=== PATIENT | male | born 1985 | race Caucasian/White ===

== ENCOUNTER 2019-01-15 13:50 | Emergency (ER) | payer SELFPAY ==
[~2019-01-15] VITALS: Ht 180.3 cm; Wt 72.6 kg
[~2019-01-15 13:50] MED LIST: ACHD5005 PO; AMOX500C2 PO; CLIN300C3 PO; IBP800T PO; NAPR-243 PO; TRM50T PO
[2019-01-15] MEDS ORDERED: NS IV 1000 ML 1,000 ML IV SCH (14:15)
[2019-01-15] MEDS ORDERED: KETOROLAC 30 MG/ML VIAL IVP ONE (14:15)
[2019-01-15 14:32] LABS: BASOPHILS # (AUTO) 0.1 10^3/uL (0.0-0.1); BASOPHILS % (AUTO) 0 % (0-10); EOSINOPHILS # (AUTO) 0.1 10^3/uL (0.0-0.3); EOSINOPHILS % (AUTO) 0 % (0-10); HEMATOCRIT 45 % (40-54); HEMOGLOBIN 15.8 G/DL (13.3-17.7); LYMPHOCYTES # (AUTO) 2.2 X 10^3 (1.0-4.0); LYMPHOCYTES % (AUTO) 13 % (12-44); MEAN CORPUSCULAR HEMOGLOBIN 30 PG (25-34); MEAN CORPUSCULAR HGB CONC 35 G/DL (32-36); MEAN CORPUSCULAR VOLUME 85 FL (80-99); MEAN PLATELET VOLUME 11.7 FL (7.4-10.4); MONOCYTES # (AUTO) 1.6 X 10^3 (0.0-1.0); MONOCYTES % (AUTO) 10 % (0-12); NEUTROPHILS # (AUTO) 12.6 X 10^3 (1.8-7.8); NEUTROPHILS % (AUTO) 76 % (42-75); PLATELET COUNT 258 10^3/uL (130-400); RED CELL DISTRIBUTION WIDTH 12.2 % (10.0-14.5); WHITE BLOOD COUNT 16.5 10^3/uL (4.3-11.0)
--- NOTE | 2019-01-15 14:33 | ED Abdominal Pain ---
General Chief Complaint: Abdominal/GI Problems Stated Complaint: NAUSEA;ABD PAIN;NUMBNESS Nursing Triage Note: PT REPORTS RIGHT SIDED ABD PAIN AND RIGHT SIDED BACK PAIN. PT STATES PAIN IS SHARP AND STABBING. RATES PAIN "15"/10. STATES FEELS LIKE KIDNEY INFECTION. Sepsis Screen: No Definite Risk Source of Information: Patient Exam Limitations: No Limitations History of Present Illness Date Seen by Provider: Jan 15, 2019 Time Seen by Provider: 14:32 Initial Comments To ER with right-sided abdominal pain. This began yesterday initially as a bu rning sensation to the right abdomen. He suspected he might have a bladder infection. Pain resolved last night, recurred this morning. Nausea but no vomiting. No difficulty with urination no fevers or chills. Timing/Duration: 1-2 Days Severity/Quality: Cramping Radiation: RLQ Activities at Onset: None Associated Symptoms: Nausea/Vomiting Allergies and Home Medications Allergies Coded Allergies: cefaclor (Unverified Allergy, Intermediate, HIVES, 01/15/19) Home Medications Clindamycin Hcl 300 Mg Capsule, 1 EACH PO QID FOR INFECTION Prescribed by: JEFF GARVEY on 03/17/13346 Tramadol Hcl 50 Mg Tab, 50 MG PO Q4-6HOURS PRN FOR PAIN Prescribed by: JEFF GARVEY on 03/17/13346 Patient Home Medication List Home Medication List Reviewed: Yes Review of Systems Review of Systems Constitutional: see HPI EENTM: No Symptoms Reported Respiratory: No Symptoms Reported Cardiovascular: No Symptoms Reported Gastrointestinal: See HPI, Abdominal Pain Genitourinary: No Symptoms Reported Musculoskeletal: no symptoms reported Skin: no symptoms reported Psychiatric/Neurological: No Symptoms Reported Endocrine: No Symptoms Reported Hematologic/Lymphatic: No Symptoms Reported Past Negteiv-Iwwfew-Bndmbv Hx Patient Social History Recent Foreign Travel: No Contact w/Someone Who Travel: No Recent Infectious Disease Expo: No Immunizations Up To Date Tetanus Booster (TDap): Less than 5yrs Family Medical History No Pertinent Family Hx Physical Exam Vital Signs Vital Signs - First Documented 01/15/19 13:52 Temp 96.0 Pulse 63 Resp 16 B/P (MAP) 153/100 (117) Pulse Ox 97 Capillary Refill : Less Than 3 Seconds Height/Weight/BMI Height: 5'11.00" Weight: 160lbs. oz. 72.064869tt; BMI Method:Stated General Appearance: WD/WN, no apparent distress HEENT: PERRL/EOMI, normal ENT inspection Respiratory: no respiratory distress, no accessory muscle use Cardiovascular: regular rate, rhythm, no murmur Gastrointestinal: normal bowel sounds, soft, tenderness Extremities: normal range of motion, non-tender Neurologic/Psychiatric: alert, normal mood/affect, oriented x 3 Skin: normal color, warm/dry Progress/Results/Core Measures Results/Orders Lab Results Laboratory Tests Test 01/15/19 14:05 Range/Units White Blood Count 16.5 H 4.3-11.0 10^3/uL Red Blood Count 5.33 4.35-5.85 10^6/uL Hemoglobin 15.8 13.3-17.7 G/DL Hematocrit 45 40-54 % Mean Corpuscular Volume 85 80-99 FL Mean Corpuscular Hemoglobin 30 25-34 PG Mean Corpuscular Hemoglobin Concent 35 32-36 G/DL Red Cell Distribution Width 12.2 10.0-14.5 % Platelet Count 258 130-400 10^3/uL Mean Platelet Volume 11.7 H 7.4-10.4 FL Neutrophils (%) (Auto) 76 H 42-75 % Lymphocytes (%) (Auto) 13 12-44 % Monocytes (%) (Auto) 10 0-12 % Eosinophils (%) (Auto) 0 0-10 % Basophils (%) (Auto) 0 0-10 % Neutrophils # (Auto) 12.6 H 1.8-7.8 X 10^3 Lymphocytes # (Auto) 2.2 1.0-4.0 X 10^3 Monocytes # (Auto) 1.6 H 0.0-1.0 X 10^3 Eosinophils # (Auto) 0.1 0.0-0.3 10^3/uL Basophils # (Auto) 0.1 0.0-0.1 10^3/uL Neutrophils % (Manual) 80 % Lymphocytes % (Manual) 9 % Monocytes % (Manual) 8 % Eosinophils % (Manual) 2 % Basophils % (Manual) 0 % Band Neutrophils 1 % Blood Morphology Comment NORMAL Sodium Level 135 135-145 MMOL/L Potassium Level 3.6 3.6-5.0 MMOL/L Chloride Level 99 98-107 MMOL/L Carbon Dioxide Level 21 21-32 MMOL/L Anion Gap 15 H 5-14 MMOL/L Blood Urea Nitrogen 13 7-18 MG/DL Creatinine 1.26 0.60-1.30 MG/DL Estimat Glomerular Filtration Rate > 60 BUN/Creatinine Ratio 10 Glucose Level 126 H 70-105 MG/DL Calcium Level 10.3 H 8.5-10.1 MG/DL Corrected Calcium 8.5-10.1 MG/DL Total Bilirubin 0.7 0.1-1.0 MG/DL Aspartate Amino Transf (AST/SGOT) 16 5-34 U/L Alanine Aminotransferase (ALT/SGPT) 11 0-55 U/L Alkaline Phosphatase 103 40-136 U/L Total Protein 8.0 6.4-8.2 GM/DL Albumin 5.0 H 3.2-4.5 GM/DL My Orders Orders - HARPAL EUCEDA APRN Cbc With Automated Diff (01/15/19 14:03) Comprehensive Metabolic Panel (01/15/19 14:03) Ua Culture If Indicated (01/15/19 14:03) Ed Iv/Invasive Line Start (01/15/19 14:03) Ketorolac Injection (Toradol Injection) (01/15/19 14:15) Ns Iv 1000 Ml (Sodium Chloride 0.9%) (01/15/19 14:15) Ct Abd/Pelvis Wo(Kidney Stone) (01/15/19 14:03) Manual Differential (01/15/19 14:05) Drug Screen Stat (Urine) (01/15/19 15:05) Medications Given in ED Current Medications Medications Dose Ordered Sig/Juan Route Start Time Stop Time Status Last Admin Dose Admin Ketorolac Tromethamine 30 mg ONCE ONCE IVP 01/15/19 14:15 01/15/19 14:16 DC 01/15/19 14:19 30 MG Vital Signs/I&O 01/15/19 13:52 Temp 96.0 Pulse 63 Resp 16 B/P (MAP) 153/100 (117) Pulse Ox 97 Blood Pressure Mean: 117 Diagnostic Imaging Diagonstic Imaging: CT Comments NAME: BHUMIKA ARMENTA Brandon MED REC#: [id number] PT STATUS: REG ER : 1985 PHYSICIAN: HARPAL EUCEDA APRN ADMIT DATE: 01/15/19/ER Draft Date of Exam:01/15/19 CT ABD/PELVIS WO(KIDNEY STONE) PROCEDURE: CT urinary tract, rule out kidney stone. TECHNIQUE: Multiple contiguous axial images were obtained through the abdomen and pelvis without the use of intravenous contrast. Auto Exposure Controls were utilized during the CT exam to meet ALARA standards for radiation dose reduction. INDICATION: Right-sided back/flank pain, sharp and stabbing. COMPARISON: None. FINDINGS: The lung bases are clear. The heart is normal in size. There is no pericardial effusion. The liver demonstrates no focal lesions. The spleen is normal. The pancreas is unremarkable on this noncontrast exam. The adrenal glands appear normal. There appears to be mild right hydronephrosis and hypodensity in the right kidney relative to the left. The ureter is difficult to follow due to paucity of abdominal fat, however there does appear to be an obstructing calculus in the distal right ureter measuring 4 mm, located a few centimeters from the ureterovesicular junction. The left kidney appears normal. The appendix is normal. There is moderate stool in the descending and sigmoid colon. No significant free fluid or free air is seen. No acute osseous abnormality is seen. IMPRESSION: 1. Obstructing 4 mm calculus in the distal right ureter with mild right hydronephrosis. 2. Moderate stool in the colon, please correlate with any history of constipation. Dictated on workstation # [id number] Dict: 01/15/19 1507 Trans: 01/15/19 1516 [facility] [id number] Interpreted by: SARAH RECIO MD Electronically signed by: Departure Impression Primary Impression: Kidney stone Disposition: 01 HOME, SELF-CARE Condition: Stable Departure-Patient Inst. Decision time for Depature: 15:20 Referrals: [facility] (PCP/Family) Primary Care Physician Patient Instructions: How to Strain Your Urine, Kidney Stones (DC) Add. Discharge Instructions: 1. Follow-up with your regular doctor next week 2. Return to ER for any fevers or other concerns 3. Medication as directed. You can take the hydrocodone for pain and additionally U should add ibuprofen to this for additional pain control. All discharge instructions reviewed with patient and/or family. Voiced understanding. Scripts Hydrocodone/Acetaminophen ([place] 5-325 Tablet) 1 Each Tablet 1 TAB PO Q4-6HR for Pain MDD 10 TABS for 7 Days, #30 TAB Do not fill unless Bactrim is also filled Prov: HARPAL EUCEDA APRN 01/15/19 Sulfamethoxazole/Trimethoprim (Bactrim Ds Tablet) 1 Each Tablet 1 EACH PO BID, #14 TAB Prov: HARPAL EUCEDA APRN 01/15/19 Tamsulosin HCl (Flomax) 0.4 Mg Cap 0.4 MG PO DAILY, #14 CAP Prov: HARPAL EUCEDA APRN 01/15/19 Work/School Note: Work Release Form Date Seen in the Emergency Department: Jan 15, 2019 Return to Work: Jan 17, 2019 HARPAL EUCEDA APRN Jan 15, 2019 14:33
[2019-01-15 14:55] LABS: ALANINE AMINOTRANSFERASE 11 U/L (0-55); ALKALINE PHOSPHATASE 103 U/L (40-136); BILIRUBIN,TOTAL 0.7 MG/DL (0.1-1.0); BUN/CREATININE RATIO 10; CALCIUM 10.3 MG/DL (8.5-10.1); CARBON DIOXIDE 21 MMOL/L (21-32); CHLORIDE 99 MMOL/L (98-107); CREATININE SERUM 1.26 MG/DL (0.60-1.30); GFR ESTIMATED > 60; GLUCOSE 126 MG/DL (70-105); POTASSIUM 3.6 MMOL/L (3.6-5.0); SODIUM 135 MMOL/L (135-145)
[2019-01-15 15:11] LABS: BAND NEUTROPHILS 1 %; BASOPHILS % (MANUAL) 0 %; EOSINOPHILS % (MANUAL) 2 %; LYMPHOCYTES % (MANUAL) 9 %; MONOCYTES % (MANUAL) 8 %; NEUTROPHILS % (MANUAL) 80 %; RBC MORPH NORMAL
--- NOTE | 2019-01-15 15:16 | Diagnostic Imaging Report ---
PROCEDURE: CT urinary tract, rule out kidney stone. TECHNIQUE: Multiple contiguous axial images were obtained through the abdomen and pelvis without the use of intravenous contrast. Auto Exposure Controls were utilized during the CT exam to meet ALARA standards for radiation dose reduction. INDICATION: Right-sided back/flank pain, sharp and stabbing. COMPARISON: None. FINDINGS: The lung bases are clear. The heart is normal in size. There is no pericardial effusion. The liver demonstrates no focal lesions. The spleen is normal. The pancreas is unremarkable on this noncontrast exam. The adrenal glands appear normal. There appears to be mild right hydronephrosis and hypodensity in the right kidney relative to the left. The ureter is difficult to follow due to paucity of abdominal fat, however there does appear to be an obstructing calculus in the distal right ureter measuring 4 mm, located a few centimeters from the ureterovesicular junction. The left kidney appears normal. The appendix is normal. There is moderate stool in the descending and sigmoid colon. No significant free fluid or free air is seen. No acute osseous abnormality is seen. IMPRESSION: 1. Obstructing 4 mm calculus in the distal right ureter with mild right hydronephrosis. 2. Moderate stool in the colon, please correlate with any history of constipation. Dictated by: Dictated on workstation # [id number]
[2019-01-15] MEDS ORDERED: HYDR-4226 PO (15:23)
[2019-01-15] MEDS ORDERED: SULF1TAB35 PO (15:23)
[2019-01-15] MEDS ORDERED: TAMS0.4C98 PO (15:23)
[2019-01-15 15:51] LABS: BILIRUBIN,URINE NEGATIVE (NEGATIVE); CLARITY,URINE SLIGHTLY CLOUDY; COLOR,URINE YELLOW; GLUCOSE, URINE (UA) NEGATIVE (NEGATIVE); KETONES,URINE 1+ (NEGATIVE); LEUKOCYTE ESTERASE ,URINE 1+ (NEGATIVE); NITRITE,URINE NEGATIVE (NEGATIVE); PH,URINE 8 (5-9); PROTEIN,URINE NEGATIVE (NEGATIVE); UROBILINOGEN,URINE NORMAL (NORMAL)
[2019-01-15 16:04] LABS: AMORPHOUS SEDIMENT,UR LARGE AMOR PHOSPHATE /LPF; BACTERIA,URINE TRACE /HPF; SQUAMOUS EPITHELIAL CELL,UR RARE /HPF; WBC,URINE 0-2 /HPF
[2019-01-15 16:06] VITALS: BP 132/90
[2019-01-15 16:09] LABS: AMPHETAMINE SCREEN, URINE POSITIVE (NEGATIVE); BARBITURATE SCREEN URINE NEGATIVE (NEGATIVE); BENZODIAZEPINES SCREEN URINE NEGATIVE (NEGATIVE); CANNABINOID SCREEN, URINE NEGATIVE (NEGATIVE); COCAINE SCREEN URINE NEGATIVE (NEGATIVE); METHADONE STAT NEGATIVE (NEGATIVE); METHAMPHETAMINE SCREEN URINE S POSITIVE (NEGATIVE); OPIATE SCREEN URINE NEGATIVE (NEGATIVE); OXYCODONE STAT NEGATIVE (NEGATIVE); PROPOXYPHENE STAT NEGATIVE (NEGATIVE); TRICYCLIC ANTIDEPRESSANTS SCRE NEGATIVE (NEGATIVE)
--- OUTSIDE RECORDS SUMMARY | 2019-01-15 22:05 | XMS REPORT | Continuity of Care Document ---
Demographics Preferred Language Unknown Marital Status Unknown Worship Affiliation Unknown Race Unknown Ethnic Group Unknown Author Organization Unknown Address Unknown Allergies Active Description Code Type Severity Reaction Onset Reported/Identified Relationship to Patient Clinical Status Yes ceclor Drug Allergy 08/20/2012 Medications There is no data. Problems Date Dx Coded Attending Type Code Diagnosis Diagnosed By 08/20/2012 784.0 HEADACHE 08/20/2012 784.0 HEADACHE 08/20/2012 784.0 HEADACHE 08/20/2012 784.0 HEADACHE 12/09/2012 599.70 HEMATURIA UNSPECIFIED Procedures Code [place] [address] ROUTINE VENIPUNCTURE 08/20/2012 23614 CMP 08/20/2012 16460 TSH 08/20/2012 33839 CBC 08/20/2012 60741 UA W/ CULTURE IF INDICATED 12/09/2012 Results Test Result Range Complete blood count (CBC) with automated white blood cell (WBC) differential - 01/15/19 14:05 Blood leukocytes automated count (number/volume) 16.5 10*3/uL 4.3-11.0 Blood erythrocytes automated count (number/volume) 5.33 10*6/uL 4.35-5.85 Venous blood hemoglobin measurement (mass/volume) 15.8 g/dL 13.3-17.7 Blood hematocrit (volume fraction) 45 % 40-54 Automated erythrocyte mean corpuscular volume 85 [foz_us] 80-99 Automated erythrocyte mean corpuscular hemoglobin (mass per erythrocyte) 30 pg 25-34 Automated erythrocyte mean corpuscular hemoglobin concentration measurement (mass/volume) 35 g/dL 32-36 Automated erythrocyte distribution width ratio 12.2 % 10.0- 14.5 Automated blood platelet count (count/volume) 258 10*3/uL 130-400 Automated blood platelet mean volume measurement 11.7 [foz_us] 7.4-10.4 Automated blood neutrophils/100 leukocytes 76 % 42-75 Automated blood lymphocytes/100 leukocytes 13 % 12-44 Blood monocytes/100 leukocytes 10 % 0-12 Automated blood eosinophils/100 leukocytes 0 % 0-10 Automated blood basophils/100 leukocytes 0 % 0-10 Blood neutrophils automated count (number/volume) 12.6 10*3 1.8-7.8 Blood lymphocytes automated count (number/volume) 2.2 10*3 1.0-4.0 Blood monocytes automated count (number/volume) 1.6 10*3 0.0- 1.0 Automated eosinophil count 0.1 10*3/uL 0.0-0.3 Automated blood basophil count (count/volume) 0.1 10*3/uL 0.0-0.1 Comprehensive metabolic panel - 01/15/19 14:05 Serum or plasma sodium measurement (moles/volume) 135 mmol/L 135-145 Serum or plasma potassium measurement (moles/volume) 3.6 mmol/L 3.6-5.0 Serum or plasma chloride measurement (moles/volume) 99 mmol/L 98-107 Carbon dioxide 21 mmol/L 21-32 Serum or plasma anion gap determination (moles/volume) 15 mmol/L 5-14 Serum or plasma urea nitrogen measurement (mass/volume) 13 mg/dL 7-18 Serum or plasma creatinine measurement (mass/volume) 1.26 mg/dL 0.60-1.30 Serum or plasma urea nitrogen/creatinine mass ratio 10 NRG Serum or plasma creatinine measurement with calculation of estimated glomerular filtration rate > NRG Serum or plasma glucose measurement (mass/volume) 126 mg/dL 70-105 Serum or plasma calcium measurement (mass/volume) 10.3 mg/dL 8.5-10.1 Serum or plasma total bilirubin measurement (mass/volume) 0.7 mg/dL 0.1-1.0 Serum or plasma alkaline phosphatase measurement (enzymatic activity/volume) 103 U/L 40-136 Serum or plasma aspartate aminotransferase measurement (enzymatic activity/volume) 16 U/L 5-34 Serum or plasma alanine aminotransferase measurement (enzymatic activity/volume) 11 U/L 0-55 Serum or plasma protein measurement (mass/volume) 8.0 g/dL 6.4-8.2 Serum or plasma albumin measurement (mass/volume) 5.0 g/dL 3.2-4.5 Manual absolute plasma cell count - 01/15/19 14:05 Blood monocytes/100 leukocytes 8 % NRG Manual blood segmented neutrophils/100 leukocytes 80 % NRG Blood band neutrophils/100 leukocytes 1 % NRG Manual blood lymphocytes/100 leukocytes 9 % NRG Manual eosinophils/100 leukocytes in nose 2 % NRG Manual blood basophils/100 leukocytes 0 % NRG Blood erythrocyte morphology finding identification NORMAL NRG Encounters ACCT No. Visit Date/Time Discharge Status Pt. Type Provider Facility Loc./Unit Complaint [id number] 08/23/2012 14:02:00 08/23/2012 23:59:59 [facility] Outpatient [id number] 08/20/2012 17:13:00 08/20/2012 23:59:59 [facility] Outpatient [id number] 12/09/2012 18:27:00 Document Registration [id number] 09/24/2012 16:05:00 Document Registration [id number] 03/17/2013 03:17:00 03/17/2013 03:55:00 [facility] Emergency [id number] 01/15/2019 14:34:00 Document Registration
--- OUTSIDE RECORDS SUMMARY | 2019-01-15 22:05 | XMS REPORT ---
Author Author Migration, Doctor Organization [facility] Address Unknown Phone Unavailable Care Team Providers Care Music Teacher Name Role Phone Migration, Doctor Unavailable Unavailable PROBLEMS Type Condition ICD9-CM Code [id number] Code Onset Dates Condition Status SNOMED Code Problem Headache 784.0 Active 03928494 Problem Hematuria, unspecified 599.70 Active 84452859 ALLERGIES No Information ENCOUNTERS Encounter Location Date Diagnosis [facility] [id number] [place] [id number] Oct, [facility] [address], [place] [address] Oct, [facility] [id number] [place] [phone] November, [facility] [id number], [place] [address] Oct, [facility] [id number] [address] Aug, [facility] [id number] [place] [address] Jul, [facility] [id number], [place] [address] Jul, IMMUNIZATIONS No Known Immunizations SOCIAL HISTORY Never Assessed REASON FOR VISIT EMR-[facility] [place] [facility] PLAN OF CARE VITAL SIGNS MEDICATIONS Unknown Medications RESULTS No Results PROCEDURES No Known procedures INSTRUCTIONS MEDICATIONS ADMINISTERED No Known Medications
--- OUTSIDE RECORDS SUMMARY | 2019-01-15 22:05 | XMS REPORT | Continuity of Care Document ---
Author Author [facility] Organization [facility] Address Unknown Phone Unavailable Care Team Providers Care Rail Operator Name Role Phone [facility] Insurance Providers Payer Name Policy Number Subscriber Name Relationship Self Pay Bhumika Pagan 01 Self / Same As Patient Advance Directives Directive Response Recorded Date Advance Directives N 03/17/13 3:20am Organ Donor Y 03/17/13 3:20am Problems No Known Problems or Medical conditions. Social History History Response Recorded Date/Time Alcohol Use Denies Use 03/17/13 3:20am Recreational Drug Use N 03/17/13 3:20am Hospitalization with Isolation Unknown 08/26/12 10:48am Sexually Transmitted Disease N 03/17/13 3:20am HIV/AIDS N 03/17/13 3:20am Allergies, Adverse Reactions, Alerts Allergen Type Severity Reaction Last Updated Cefaclor Allergy Intermediate HIVES 12/22/09 Medications Medication Dose Units Route Sig Qty Days Tramadol HCl (Ultram) 50 Mg PO Q4-6HOURS PRN 20 Clindamycin HCl (Cleocin Hcl) 1 Each PO QID 40 Tramadol HCl (Ultram) 50 Mg PO Q4H 10 Ibuprofen (Motrin) 800 Mg PO Q8HR PRN 30 Hydrocodone Bit/Acetaminophen (Hydrocodon-Acetaminophen 5-325) 1 - 2 Each PO Q6H PRN 14 Amoxicillin 1 Each PO TID Hydrocodone Bit/Acetaminophen (Hydrocodon-Acetaminophen 5-325) 1 - 2 Each PO Q6H PRN 14 Response Recorded Date/Time Status not known Unknown Results No Known Relevant Diagnostic Tests, Laboratory Data and/or Discharge Summary. Encounters Encounter Location Date/Time Registered Emergency Room [facility] 03/17/13 3:17am Departed Emergency Room [facility] 11/10/12 5:17am
== END 2019-01-15 16:06 | disposition home or self-care (01) ==
LOC: EDUNIT# 13:50 → ER 13:51
DX: N13.2 Hydronephrosis with renal and ureteral calculous obstruction (principal); Z88.1 Allergy status to other antibiotic agents
CPT/HCPCS: 36415; 74176; 80053; 80306; 81000; 85007; 85027; 87088; 96374

== ENCOUNTER 2023-01-14 18:40 | Emergency (ER) | payer SELFPAY ==
[~2023-01-14] VITALS: Ht 182.9 cm; Wt 70.3 kg
[~2023-01-14 18:40] MED LIST changes: +HYDR-4226 PO; +SULF1TAB38 PO; +TMSL.4C PO
[2023-01-14 18:50] VITALS: BP 188/130
--- NOTE | 2023-01-14 19:23 | ED General ---
General Chief Complaint: General Problems/Pain Stated Complaint: SOA Nursing Triage Note: PT AMB TO ED BY POV WITH C/O DIZZINESS/LIGHT HEADEDNESS BEGINNING YESTERDAY. PT REPORTS HE "JUST DON'T FEEL GOOD." PT DENIES C/P, SOB, FEVER, N/V/D, URINARY SX, COUGH, OR ANY OTHER SX AT THIS TIME. PT REPORTS HE HAS PULLED SEVERAL TICKS OFF HIMSELF THIS YEAR AND WONDERS IF THIS MAY BE CONTRIBUTING TO HIM NOT FEELING WELL. Source of Information: Patient Exam Limitations: No Limitations History of Present Illness Date Seen by Provider: Jan 14, 2023 Time Seen by Provider: 19:15 Initial Comments 37-year-old male presents to the ER with complaints of feeling lightheaded, numb all over, and generally not feeling well. He denies headache, chest pain, shortness of air, abdominal pain, nausea, vomiting, diarrhea. Blood pressure is found to be significantly elevated. He denies history of diagnosis of hypertension. He has never been prescribed occasions for blood pressure. Patient endorses meth use. Allergies and Home Medications Allergies Coded Allergies: cefaclor (Unverified Allergy, Intermediate, HIVES, 01/15/19) Patient Home Medication List Home Medication List Reviewed: Yes Clindamycin Hcl (Cleocin Hcl) 300 Mg Capsule, 1 EACH PO QID Prescribed by: JEFF GARVEY on 03/17/13346 Hydrocodone/Acetaminophen (Hydrocodone/Acetaminophen 5 MG/325 MG TAB) 1 Each Tablet, 1 TAB PO Q4-6HR Prescribed by: HARPAL EUCEDA on 01/15/19 152 Metoprolol Succinate (Metoprolol Succinate) 50 Mg Tab.er.24h, 50 MG PO DAILY Prescribed by: Cinthya Pabon on 01/14/232150 Sulfamethoxazole/Trimethoprim (Bactrim Ds Tablet) 1 Each Tablet, 1 EACH PO BID Prescribed by: HARPAL EUCEDA on 01/15/19 152 Tamsulosin HCl (Flomax) 0.4 Mg Cap, 0.4 MG PO DAILY Prescribed by: HARPAL EUCEDA on 01/15/19 152 Tramadol Hcl (Ultram) 50 Mg Tab, 50 MG PO Q4-6HOURS PRN Prescribed by: JEFF GARVEY on 03/17/13346 Review of Systems Review of Systems Constitutional: see HPI Past Qauiigc-Ngtuws-Mtfvcq Hx Immunizations Up To Date Tetanus Booster (TDap): Less than 5yrs Past Medical History Surgeries: Yes (GROIN LYMPH NODE REMOVED AGE 15, TOP TEETH REMOVED) Respiratory: No Cardiac: No Neurological: No Sexually Transmitted Disease: No HIV/AIDS: No Gastrointestinal: No Musculoskeletal: No Endocrine: No Cancer: No Psychosocial: No Integumentary: No Blood Disorders: No Family Medical History No Pertinent Family Hx Physical Exam Vital Signs Vital Signs - First Documented 01/14/23 18:50 Temp 36.0 Pulse 89 Resp 16 B/P (MAP) 188/130 (149) Pulse Ox 96 O2 Delivery Room Air Capillary Refill : Less Than 3 Seconds Height, Weight, BMI Height: 5'11.00" Weight: 160lbs. oz. 72.975427ms; 21.00 BMI Method:Stated General Appearance: No Apparent Distress, WD/WN Neck: Normal Inspection, Supple Respiratory: Lungs Clear, Normal Breath Sounds, No Accessory Muscle Use, No Respiratory Distress Cardiovascular: Regular Rate, Rhythm, Systolic Murmur Extremity: Normal Inspection, Normal Range of Motion Neurologic/Psychiatric: Alert, Normal Mood/Affect Skin: Normal Color, Warm/Dry Progress/Results/Core Measures Suspected Sepsis SIRS Temperature: Pulse: 89 Respiratory Rate: 16 Laboratory Tests 01/14/23 20:10: White Blood Count 9.9 Blood Pressure 188 /130 Mean: 149 Laboratory Tests 01/14/23 20:10: Creatinine 1.15, Platelet Count 262, Total Bilirubin 0.4 Results/Orders Lab Results Laboratory Tests Test 01/14/23 20:10 Range/Units White Blood Count 9.9 4.3-11.0 10^3/uL Red Blood Count 4.71 4.30-5.52 10^6/uL Hemoglobin 13.8 13.3-17.7 g/dL Hematocrit 40 40-54 % Mean Corpuscular Volume 85 80-99 fL Mean Corpuscular Hemoglobin 29 25-34 pg Mean Corpuscular Hemoglobin Concent 35 32-36 g/dL Red Cell Distribution Width 12.6 10.0-14.5 % Platelet Count 262 130-400 10^3/uL Mean Platelet Volume 11.1 9.0-12.2 fL Immature Granulocyte % (Auto) 0 % Neutrophils (%) (Auto) 61 42-75 % Lymphocytes (%) (Auto) 23 12-44 % Monocytes (%) (Auto) 13 H 0-12 % Eosinophils (%) (Auto) 3 0-10 % Basophils (%) (Auto) 1 0-10 % Neutrophils # (Auto) 6.0 1.8-7.8 10^3/uL Lymphocytes # (Auto) 2.2 1.0-4.0 10^3/uL Monocytes # (Auto) 1.3 H 0.0-1.0 10^3/uL Eosinophils # (Auto) 0.3 0.0-0.3 10^3/uL Basophils # (Auto) 0.1 0.0-0.1 10^3/uL Immature Granulocyte # (Auto) 0.0 0.0-0.1 10^3/uL Sodium Level 140 135-145 MMOL/L Potassium Level 3.3 L 3.6-5.0 MMOL/L Chloride Level 100 98-107 MMOL/L Carbon Dioxide Level 29 21-32 MMOL/L Anion Gap 11 5-14 MMOL/L Blood Urea Nitrogen 12 7-18 MG/DL Creatinine 1.15 0.60-1.30 MG/DL Estimat Glomerular Filtration Rate 85 BUN/Creatinine Ratio 10 Glucose Level 103 70-105 MG/DL Calcium Level 9.3 8.5-10.1 MG/DL Corrected Calcium 9.3 8.5-10.1 MG/DL Magnesium Level 2.2 1.6-2.4 MG/DL Total Bilirubin 0.4 0.1-1.0 MG/DL Aspartate Amino Transf (AST/SGOT) 29 5-34 U/L Alanine Aminotransferase (ALT/SGPT) 12 0-55 U/L Alkaline Phosphatase 105 40-136 U/L Troponin I < 0.028 <0.028 NG/ML Total Protein 6.8 6.4-8.2 GM/DL Albumin 4.0 3.2-4.5 GM/DL My Orders Orders - CINTHYA PABON APRN Cbc With Automated Diff (01/14/23 19:19) Magnesium (01/14/23 19:19) Ekg Tracing (01/14/23 19:19) Comprehensive Metabolic Panel (01/14/23 19:19) Monitor-Rhythm Ecg Trace Only (01/14/23 19:19) Ed Iv/Invasive Line Start (01/14/23 19:19) Labetalol Injection (Normodyne Injection (01/14/23 19:30) Troponin I Jomar (01/14/23 19:43) Metoprolol Succinate (Xl) Tab (Toprol Xl (01/14/23 20:00) Potassium Chloride (Tablet) (K Dur Table (01/14/23 21:00) Labetalol Injection (Normodyne Injection (01/14/23 21:15) Medications Given in ED Vital Signs/I&O 01/14/23 18:50 Temp 36.0 Pulse 89 Resp 16 B/P (MAP) 188/130 (149) Pulse Ox 96 O2 Delivery Room Air Capillary Refill : Less Than 3 Seconds Blood Pressure Mean: 149 Progress Note : Progress Note Patient seen and evaluated, resting comfortably in bed, no acute distress. On exam and symptoms, work-up initiated including CBC, CMP, magnesium, EKG. Labetalol ordered. Metoprolol XL also ordered. Labs reviewed. CBC grossly normal. CMP shows slightly decreased potassium 3.3. Troponin negative. Magnesium normal. Oral potassium ordered. Second dose of labetalol ordered. EKG shows left ventricular hypertrophy likely related to prolonged, untreated hypertension. Patient's blood pressure improved to 159/120 down from 188 systolic on arrival. Patient reports he is feeling better. Will discharge with prescription for metoprolol. Patient does not have a primary care provider, will give him contact information for cardiology for follow-up. ECG Initial ECG Impression Date: Jan 14, 2023 Initial ECG Impression Time: 19:28 Initial ECG Rate: 83 Initial ECG Rhythm: Normal Sinus Initial ECG Intervals: Normal Initial ECG Impression: Nonspecific Changes Initial ECG Comparisson: No Previous ECG Available Comment Left ventricular hypertrophy. ST elevation in V1 and V2, no Q waves or T wave inversion. Departure Impression Primary Impression: Hypertension Qualified Codes: I10 - Essential (primary) hypertension Disposition: 01 HOME, SELF-CARE Condition: Stable Departure-Patient Inst. Decision time for Depature: 21:48 Referrals: [facility] [place] (PCP/Family) Primary Care Physician SUZE SANDOVAL MD Patient Instructions: High Blood Pressure (DC) Add. Discharge Instructions: Take metoprolol 1 tablet daily. Call cardiology tomorrow to schedule a follow-up appointment this week or next week. You need to establish a primary care provider as well. Stop using meth. Return for severe headache, severe dizziness, blurred vision, chest pain, shortness of air, weakness on one side of your body, or any other new, concer rosita, or worsening symptoms. All discharge instructions reviewed with patient and/or family. Voiced understanding. Scripts Metoprolol Succinate (Metoprolol Succinate) 50 Mg Tab.er.24h 50 MG PO DAILY for 30 Days, #30 TAB 0 Refills Prov: CINTHYA PABON APRN 01/14/23 CINTHYA PABON APRN Jan 14, 2023 19:23
[2023-01-14] MEDS ORDERED: LABETALOL HCL 20 MG/4 ML VIAL IV ONE ×2 (19:30→21:15)
[2023-01-14] MEDS ORDERED: meTOproloL SUCCINATE 50 MG (TOPROL XL) TAB PO SCH (20:00)
[2023-01-14 20:37] LABS: BASOPHILS # (AUTO) 0.1 10^3/uL (0.0-0.1); BASOPHILS % (AUTO) 1 % (0-10); EOSINOPHILS # (AUTO) 0.3 10^3/uL (0.0-0.3); EOSINOPHILS % (AUTO) 3 % (0-10); HEMATOCRIT 40 % (40-54); HEMOGLOBIN 13.8 g/dL (13.3-17.7); LYMPHOCYTES # (AUTO) 2.2 10^3/uL (1.0-4.0); LYMPHOCYTES % (AUTO) 23 % (12-44); MEAN CORPUSCULAR HEMOGLOBIN 29 pg (25-34); MEAN CORPUSCULAR HGB CONC 35 g/dL (32-36); MEAN CORPUSCULAR VOLUME 85 fL (80-99); MEAN PLATELET VOLUME 11.1 fL (9.0-12.2); MONOCYTES # (AUTO) 1.3 10^3/uL (0.0-1.0); MONOCYTES % (AUTO) 13 % (0-12); NEUTROPHILS % (AUTO) 61 % (42-75); PLATELET COUNT 262 10^3/uL (130-400); WHITE BLOOD COUNT 9.9 10^3/uL (4.3-11.0)
[2023-01-14 20:46] LABS: ALKALINE PHOSPHATASE 105 U/L (40-136); BILIRUBIN,TOTAL 0.4 MG/DL (0.1-1.0); BUN/CREATININE RATIO 10; CALCIUM 9.3 MG/DL (8.5-10.1); CARBON DIOXIDE 29 MMOL/L (21-32); CHLORIDE 100 MMOL/L (98-107); CREATININE SERUM 1.15 MG/DL (0.60-1.30); GFR ESTIMATED 85; GLUCOSE 103 MG/DL (70-105); MAGNESIUM 2.2 MG/DL (1.6-2.4); POTASSIUM 3.3 MMOL/L (3.6-5.0); SODIUM 140 MMOL/L (135-145); TOTAL PROTEIN 6.8 GM/DL (6.4-8.2)
[2023-01-14] MEDS ORDERED: KCL 20 MEQ TAB (K-DUR) PO ONE (21:00)
[2023-01-14 21:13] LABS: ALANINE AMINOTRANSFERASE 12 U/L (0-55)
[2023-01-14] MEDS ORDERED: METO50TA7 PO (21:51)
== END 2023-01-14 22:04 | disposition home or self-care (01) ==
LOC: EDUNIT# 18:40 → ER 18:42
DX: I10 Essential (primary) hypertension (principal)
CPT/HCPCS: 36415; 80053; 83735; 84484; 85025; 93005; 93041

== ENCOUNTER 2023-06-01 17:13 | Inpatient (IN) | payer SELFPAY ==
[~2023-06-01] VITALS: Ht 182 cm; Wt 72.8 kg
[~2023-06-01 17:13] MED LIST changes: +METO50TA7 PO
[2023-06-01] MEDS ORDERED: ACETAMINOPHEN 500 MG TABLET PO STA (17:38)
[2023-06-01 17:43] LABS: BASOPHILS # (AUTO) 0.1 10^3/uL (0.0-0.1); BASOPHILS % (AUTO) 1 % (0-10); EOSINOPHILS # (AUTO) 0.1 10^3/uL (0.0-0.3); EOSINOPHILS % (AUTO) 1 % (0-10); HEMATOCRIT 43 % (40-54); HEMOGLOBIN 14.8 g/dL (13.3-17.7); LYMPHOCYTES # (AUTO) 2.1 10^3/uL (1.0-4.0); LYMPHOCYTES % (AUTO) 19 % (12-44); MEAN CORPUSCULAR HEMOGLOBIN 29 pg (25-34); MEAN CORPUSCULAR HGB CONC 34 g/dL (32-36); MEAN CORPUSCULAR VOLUME 84 fL (80-99); MEAN PLATELET VOLUME 10.8 fL (9.0-12.2); MONOCYTES # (AUTO) 0.9 10^3/uL (0.0-1.0); MONOCYTES % (AUTO) 8 % (0-12); NEUTROPHILS # (AUTO) 7.8 10^3/uL (1.8-7.8); NEUTROPHILS % (AUTO) 71 % (42-75); PLATELET COUNT 249 10^3/uL (130-400)
[2023-06-01] MEDS ORDERED: meTOprolol TARTRATE (IR) 50 MG TABLET PO ONE (17:45)
[2023-06-01] MEDS ORDERED: meTOprolol INJECTION 5 MG/5 ML VIAL IV ONE (17:45)
[2023-06-01 17:53] LABS: ALBUMIN 4.5 GM/DL (3.2-4.5); CHLORIDE 97 MMOL/L (98-107); POTASSIUM 3.4 MMOL/L (3.6-5.0); SODIUM 136 MMOL/L (135-145)
[2023-06-01 17:54] LABS: CALCIUM 9.9 MG/DL (8.5-10.1)
[2023-06-01 17:56] LABS: GLUCOSE 154 MG/DL (70-105); TOTAL PROTEIN 7.5 GM/DL (6.4-8.2)
--- NOTE | 2023-06-01 17:56 | ED Headache ---
General Chief Complaint: Head/Cervical Problems Stated Complaint: HEADACHE Nursing Triage Note: PT PRESENTS TO ED WITH COMPLAINTS OF GREGORIO X 3 DAYS WITH ONE EPISODE OF VOMITING AFTER GREGORIO INTENSIFIED TODAY. PT REPORTS HE TOOK 2 "HITS" OFF A [employer]AB [employer] AND FEELS LIKE IT MIGHT HAVE HELPED HIS S/S. Source: patient Exam Limitations: no limitations (DEEPAK MOCK MD) History of Present Illness Date Seen by Provider: Jun 01, 2023 Time Seen by Provider: 17:27 Initial Comments Here with report of headache over the last 3 to 4 days. Not better despite Tylenol or ibuprofen. He did try 2 hits off a dab pen today and that did not really help. States the headache got worse but now is a little better. No history of hypertension but arrives quite hypertensive. States he follows with [facility] if needed. Does note some nausea with this. Initially reported 10 out of 10 pain but now says it is 5 out of 10 and global. Denies chest pain, breathing problems, diarrhea or dysuria. Denies leg pain or swelling. He is not currently on any medicines. Timing/Duration: waxing and waning, other (3 to 4 days) Severity/Quality: moderate, severe Location: global Prior Headaches/Recent Trauma: no recent headache/trauma Modifying Factors: improves with rest Associated Symptoms: No confusion, No fatigue, No fever/chills, No loss of consciousness, No nasal congestion, No sinus infection, No stiff neck (DEEPAK MOCK MD) Allergies and Home Medications Allergies Coded Allergies: cefaclor (Unverified Allergy, Intermediate, HIVES, 01/15/19) Patient Home Medication List Home Medication List Reviewed: Yes (DEEPAK MOCK MD) Discontinued Medications Clindamycin Hcl (Cleocin Hcl) 300 Mg Capsule, 1 EACH PO QID Prescribed by: JEFF JACINTO on 03/17/13 0347 Last Action: Discontinued Hydrocodone/Acetaminophen (Hydrocodone/Acetaminophen 5 MG/325 MG TAB) 1 Each Tablet, 1 TAB PO Q4-6HR Prescribed by: HARPAL EUCEDA on 01/15/19 1523 Last Action: Discontinued Metoprolol Succinate (Metoprolol Succinate) 50 Mg Tab.er.24h, 50 MG PO DAILY Prescribed by: Cinthya Neal on 01/14/23 215 Last Action: Discontinued Sulfamethoxazole/Trimethoprim (Bactrim Ds Tablet) 1 Each Tablet, 1 EACH PO BID Prescribed by: HARPAL EUCEDA on 01/15/191522 Last Action: Discontinued Tamsulosin HCl (Flomax) 0.4 Mg Cap, 0.4 MG PO DAILY Prescribed by: HARPAL EUCEDA on 01/15/191522 Last Action: Discontinued Tramadol Hcl (Ultram) 50 Mg Tab, 50 MG PO Q4-6HOURS PRN Prescribed by: JEFF JACINTO on 03/17/13 034 Last Action: Discontinued Review of Systems Review of Systems Constitutional: see HPI; No chills, No fever Eyes: No Symptoms Reported Ears, Nose, Mouth, Throat: no symptoms reported Respiratory: No cough, No short of breath Cardiovascular: No chest pain, No edema, No palpitations Gastrointestinal: No nausea, No vomiting Genitourinary: no symptoms reported Musculoskeletal: no symptoms reported Skin: no symptoms reported Psychiatric/Neurological: Headache; Denies Weakness (DEEPAK MOCK MD) Past Hvgztya-Jgbwoy-Uqlggu Hx Patient Social History Tobacco Use?: Yes Smoking Status: Current Everyday Smoker Substance use?: Yes Substance type: Marijuana Alcohol Use?: No Pt feels they are or have been: No (DEEPAK MOCK MD) Tobacco Use?: Yes Tobacco type used: Cigarettes Substance use?: Yes Substance type: Methamphetamine Substance frequency: Daily Alcohol Use?: Yes Alcohol Frequency: Once in a while (JEFF JACINTO DO) Immunizations Up To Date Tetanus Booster (TDap): Less than 5yrs First/Initial COVID19 Vaccinat: N/A Second COVID19 Vaccination Catrachito: N/A Third COVID19 Vaccination Date: N/A (DEEPAK MOCK MD) Past Medical History Surgery/Hospitalization HX: DENIES Surgeries: Yes (GROIN LYMPH NODE REMOVED AGE 15, TOP TEETH REMOVED) Respiratory: No Cardiac: Yes Hypertension Neurological: No Sexually Transmitted Disease: No HIV/AIDS: No Gastrointestinal: No Musculoskeletal: No Endocrine: No Cancer: No Psychosocial: No Integumentary: No Blood Disorders: No (DEEPAK MOCK MD) Genitourinary: Yes Kidney Stones HEENT: Yes (POOR DENTITION) (JEFF JACINTO DO) Family Medical History Reviewed Nursing Family Hx (DEEPAK MOCK MD) No Pertinent Family Hx (DEEPAK MOCK MD) Physical Exam Vital Signs Vital Signs - First Documented 06/01/23 17:20 Temp 36.5 Pulse 54 Resp 16 B/P (MAP) 206/142 (163) Pulse Ox 93 (JEFF JACINTO DO) Vital Signs Capillary Refill : Less Than 3 Seconds (DEEPAK MOCK MD) Height, Weight, BMI Height: 5'11.00" Weight: 160lbs. oz. 72.740495pw; 21.00 BMI Method:Stated General Appearance: WD/WN, no apparent distress HEENT: PERRL/EOMI, pharynx normal Neck: full range of motion, supple Cardiovascular: regular rate, rhythm, no murmur Respiratory: lungs clear, normal breath sounds Gastrointestinal: non tender, soft Back: normal inspection, no CVA tenderness, no vertebral tenderness Extremities: non-tender, normal inspection Psychiatric: alert, oriented x 3 Crainal Nerves: normal hearing, normal speech Coordination/Gait: normal gait Motor/Sensory: no motor deficit, no sensory deficit Skin: normal color, warm/dry (DEEPAK MOCK MD) General Appearance: thin, other (DIRTY, MALODOROUS) HEENT: other (POOR DENTITION) (JEFF JACINTO DO) Progress/Results/Core Measures Results/Orders Lab Results Laboratory Tests Test 06/01/23 17:36 06/01/23 18:49 Range/Units White Blood Count 11.0 4.3-11.0 10^3/uL Red Blood Count 5.15 4.30-5.52 10^6/uL Hemoglobin 14.8 13.3-17.7 g/dL Hematocrit 43 40-54 % Mean Corpuscular Volume 84 80-99 fL Mean Corpuscular Hemoglobin 29 25-34 pg Mean Corpuscular Hemoglobin Concent 34 32-36 g/dL Red Cell Distribution Width 12.2 10.0-14.5 % Platelet Count 249 130-400 10^3/uL Mean Platelet Volume 10.8 9.0-12.2 fL Immature Granulocyte % (Auto) 0 % Neutrophils (%) (Auto) 71 42-75 % Lymphocytes (%) (Auto) 19 12-44 % Monocytes (%) (Auto) 8 0-12 % Eosinophils (%) (Auto) 1 0-10 % Basophils (%) (Auto) 1 0-10 % Neutrophils # (Auto) 7.8 1.8-7.8 10^3/uL Lymphocytes # (Auto) 2.1 1.0-4.0 10^3/uL Monocytes # (Auto) 0.9 0.0-1.0 10^3/uL Eosinophils # (Auto) 0.1 0.0-0.3 10^3/uL Basophils # (Auto) 0.1 0.0-0.1 10^3/uL Immature Granulocyte # (Auto) 0.0 0.0-0.1 10^3/uL Sodium Level 136 135-145 MMOL/L Potassium Level 3.4 L 3.6-5.0 MMOL/L Chloride Level 97 L 98-107 MMOL/L Carbon Dioxide Level 29 21-32 MMOL/L Anion Gap 10 5-14 MMOL/L Blood Urea Nitrogen 18 7-18 MG/DL Creatinine 1.51 H 0.60-1.30 MG/DL Estimat Glomerular Filtration Rate 61 BUN/Creatinine Ratio 12 Glucose Level 154 H 70-105 MG/DL Calcium Level 9.9 8.5-10.1 MG/DL Corrected Calcium 9.5 8.5-10.1 MG/DL Magnesium Level 2.4 1.6-2.4 MG/DL Total Bilirubin 0.8 0.1-1.0 MG/DL Aspartate Amino Transf (AST/SGOT) 15 5-34 U/L Alanine Aminotransferase (ALT/SGPT) 8 0-55 U/L Alkaline Phosphatase 102 40-136 U/L Troponin I < 0.028 <0.028 NG/ML Total Protein 7.5 6.4-8.2 GM/DL Albumin 4.5 3.2-4.5 GM/DL TSH [facility] Testing 0.50 0.35-4.94 UIU/ML Serum Alcohol < 10 <10 MG/DL Urine Color YELLOW Urine Clarity CLEAR Urine pH 6.0 5-9 Urine Specific [place] >=1.030 1.016-1.022 Urine Protein 3+ H NEGATIVE Urine Glucose (UA) NEGATIVE NEGATIVE Urine Ketones NEGATIVE NEGATIVE Urine Nitrite NEGATIVE NEGATIVE Urine Bilirubin NEGATIVE NEGATIVE Urine Urobilinogen 0.2 < = 1.0 MG/DL Urine Leukocyte Esterase NEGATIVE NEGATIVE Urine RBC (Auto) NEGATIVE NEGATIVE Urine RBC 0-2 /HPF Urine WBC RARE /HPF Urine Squamous Epithelial Cells NONE /HPF Urine Crystals NONE /LPF Urine Bacteria TRACE /HPF Urine Casts PRESENT /LPF Urine Hyaline Casts 5-10 H /LPF Urine Granular Casts RARE /LPF Urine Mucus LARGE H /LPF Urine Culture Indicated NO Urine Opiates Screen NEGATIVE NEGATIVE Urine Oxycodone Screen NEGATIVE NEGATIVE Urine Methadone Screen NEGATIVE NEGATIVE Urine Barbiturates Screen NEGATIVE NEGATIVE Ur Tricyclic Antidepressants Screen NEGATIVE NEGATIVE Urine Phencyclidine Screen NEGATIVE NEGATIVE Urine Amphetamines Screen POSITIVE H NEGATIVE Urine Methamphetamines Screen POSITIVE H NEGATIVE Urine Benzodiazepines Screen NEGATIVE NEGATIVE Urine Cocaine Screen NEGATIVE NEGATIVE Urine Cannabinoids Screen POSITIVE H NEGATIVE (JEFF JACINTO DO) My Orders Orders - JEFF JACINTO DO Hydralazine Injection (Hydralazine Injec (06/01/23 18:00) Alcohol (06/01/23 18:04) Drug Screen Stat (Urine) (06/01/23 18:04) Ua Culture If Indicated (06/01/23 18:04) Ct Head Wo-R/O Stroke (06/01/23 18:04) Magnesium (06/01/23 18:04) Thyroid Analyzer (06/01/23 18:04) D5w (Ivpb) 250 Ml (... W/Nitroprusside I (06/01/23 19:00) Ed Admission (Communication) (06/01/23 19:19) (JEFF JACINTO DO) Medications Given in ED (JEFF JACINTO DO) Vital Signs/I&O 06/01/23 06/01/23 06/01/23 17:20 19:17 20:15 Temp 36.5 Pulse 54 64 69 Resp 16 18 16 B/P (MAP) 206/142 (163) 183/121 149/99 Pulse Ox 93 98 (JEFF JACINTO DO) Blood Pressure Mean: 163 Progress Progress Note : Progress Note Seen and evaluated. Patient was noted to have blood pressure 220s over 140s on both arms at triage. Moved from fast-track room to main ED room. I did asked the patient if he has history of hypertension which she states he did not know of but looking at prescription history, patient has been prescribed metoprolol 50 mg twice daily previously for hypertension. He denies chest pain but has some nausea and has global headache a 5 out of 10. We will go ahead and check EKG and basic labs including CBC, CMP and troponin and get chest x-ray. Metoprolol 5 mg IV and 50 mg p.o. ordered of the IR version. Tylenol 1 g p.o. ordered. We will see if we can get a little better control of his blood pressure with this. Monitor patient. Differential diagnosis includes uncontrolled hypertension, cardiac abnormality, electrolyte abnormality, hypertensive headache 1754: EKG reviewed by me as noted below and it would appear he has had long-term hypertension. Care transferred to Dr. Jacinto pending labs, x-ray and improvement secondary to meds. (DEEPAK MOCK MD) Progress Note : Progress Note 1800--ASSUMED CARE FROM DR. MOCK, ALL STUDIES PENDING AT THIS TIME,. ADDITIONAL LAB, CT HEAD AND MEDICATIONS ORDERED HYDRALAZINE ORDERED WITHOUT SIGNIFICANT IMPROVEMENT IN BLOOD PRESSURE PT THEN STARTED IN NIPRIDE DRIP BP BEGINNING TO COME DOWN AT TIME OF ADMIT. PT STATES HEADACHE IS GETTING BETTER AT TIME OF ADMIT. PT ADMITS TO SMOKING AT LEAST 1 PPD "WHEN HE CAN AFFORD THEM" HE ALSO USES METH ON A REGULAR BASIS, AND HAS USED IT IV WELL SMOKED IT. LABS: -CBC NORMAL\\ -CMP WITH K 3.4, CR 1.51, GLU 154, OTHERWISE NORMAL -TROPONIN NEGATIVE -TSH NORMAL -MG NORMAL -UA WITH 3+ PROTEIN -ETOH NEGATIVE -UDS + FOR AMPHETAMINES/METHAMPHETAMINES, THC. EKG IS UNREMARKABLE CXR UNREMARKABLE CT HEAD UNREMARKABLE. DISCUSSED TEST RESULTS, NEED FOR ADMIT AND PT STATES HE WILL STAY AND BE A DMITTED REVIEWED PRIOR RECORDS, INCLUDING ER VISITS (JEFF JACINTO DO) Initial ECG Impression Date: Jun 01, 2023 Initial ECG Impression Time: 17:41 Initial ECG Rate: 91 Initial ECG Rhythm: Normal Sinus Comment Sinus rhythm with normal axis and left atrial abnormality noted. Left ventricular hypertrophy noted. No evidence of ST elevation NE. Interpreted by me. (DEEPAK MOCK MD) Diagnostic Imaging Comments CXR--PER RADIOLOGIST REPORT FINDINGS: Heart size and pulmonary vasculature are normal. The lungs are clear without consolidation, pleural effusion, or pneumothorax. The osseous structures are intact. IMPRESSION: No acute radiographic abnormality in the chest. CT HEAD--PER RADIOLOGIST REPORT AT 1842 FINDINGS: No large acute territorial ischemia, mass, or hemorrhage. No midline shift or mass effect. The ventricles, cortical sulci, and basilar cisterns are patent and unremarkable. The orbits are normal. Paranasal sinuses are normal. Mastoid air cells are clear. No soft tissue abnormality is seen. No osseus lesions or fractures are seen. IMPRESSION: No large acute territorial ischemia, mass, or hemorrhage. Reviewed: Reviewed by Me (JEFF JACINTO DO) Departure Communication (Admissions) 1903--CALLED DR. DAHL, HOSPITALIST FOR [facility] [place]. MESSAGE LEFT ON CELL 1916--SPOKE WITH DR. DAHL, ACCEPTS PT FOR ADMIT. SHE WILL DO ADMIT ORDERS (JEFF JACINTO DO) Impression Primary Impression: Hypertensive urgency Additional Impressions: Headache Renal insufficiency Methamphetamine use Marijuana use Disposition: ADMITTED INPATIENT Condition: Improved Admissions Decision to Admit Reason: Admit from ER (General) Decision to Admit/Date: Jun 01, 2023 Time/Decision to Admit Time: 19:20 (JEFF JACINTO DO) Departure-Patient Inst. Referrals: [facility] [place] ([place]/Family) Primary Care Physician DEEPAK MOCK MD Jun 01, 2023 17:56 JEFF JACINTO DO Jun 01, 2023 18:33
[2023-06-01 17:57] LABS: BILIRUBIN,TOTAL 0.8 MG/DL (0.1-1.0); CARBON DIOXIDE 29 MMOL/L (21-32)
[2023-06-01 17:59] LABS: ALKALINE PHOSPHATASE 102 U/L (40-136); CREATININE SERUM 1.51 MG/DL (0.60-1.30); GFR ESTIMATED 61
[2023-06-01 18:00] LABS: BUN/CREATININE RATIO 12
[2023-06-01] MEDS ORDERED: hydrALAZINE INJECTION 20 MG/ML VIAL IV ONE (18:00)
[2023-06-01 18:02] LABS: ALANINE AMINOTRANSFERASE 8 U/L (0-55)
--- NOTE | 2023-06-01 18:22 | Diagnostic Imaging Report ---
EXAMINATION: Chest, 1 view. HISTORY: Hypertension. COMPARISON: None available. FINDINGS: Heart size and pulmonary vasculature are normal. The lungs are clear without consolidation, pleural effusion, or pneumothorax. The osseous structures are intact. IMPRESSION: No acute radiographic abnormality in the chest. Dictated by: Dictated on workstation # [id number]
[2023-06-01 18:24] LABS: MAGNESIUM 2.4 MG/DL (1.6-2.4)
--- NOTE | 2023-06-01 18:36 | Diagnostic Imaging Report ---
EXAMINATION: CT head without contrast. TECHNIQUE: Multiple contiguous axial images were obtained through the brain without the use of intravenous contrast. All CT scans use one or more of the following dose optimizing techniques: automated exposure control, MA and/or KvP adjustment based on patient size and exam type or iterative reconstruction. HISTORY: Headache for 3 days. Vomiting. COMPARISON: None available. FINDINGS: No large acute territorial ischemia, mass, or hemorrhage. No midline shift or mass effect. The ventricles, cortical sulci, and basilar cisterns are patent and unremarkable. The orbits are normal. Paranasal sinuses are normal. Mastoid air cells are clear. No soft tissue abnormality is seen. No osseus lesions or fractures are seen. IMPRESSION: No large acute territorial ischemia, mass, or hemorrhage. Dictated by: Dictated on workstation # [id number]
[2023-06-01 19:05] LABS: BACTERIA,URINE TRACE /HPF; BILIRUBIN,URINE NEGATIVE (NEGATIVE); CLARITY,URINE CLEAR; COLOR,URINE YELLOW; GLUCOSE, URINE (UA) NEGATIVE (NEGATIVE); GRANULAR CASTS,URINE RARE /LPF; KETONES,URINE NEGATIVE (NEGATIVE); LEUKOCYTE ESTERASE ,URINE NEGATIVE (NEGATIVE); NITRITE,URINE NEGATIVE (NEGATIVE); PROTEIN,URINE 3+ (NEGATIVE); RBC,URINE 0-2 /HPF; WBC,URINE RARE /HPF
[2023-06-01 19:10] LABS: AMPHETAMINE SCREEN, URINE POSITIVE (NEGATIVE); BARBITURATE SCREEN URINE NEGATIVE (NEGATIVE); CANNABINOID SCREEN, URINE POSITIVE (NEGATIVE); COCAINE SCREEN URINE NEGATIVE (NEGATIVE); METHADONE STAT NEGATIVE (NEGATIVE); OPIATE SCREEN URINE NEGATIVE (NEGATIVE); OXYCODONE STAT NEGATIVE (NEGATIVE); TRICYCLIC ANTIDEPRESSANTS SCRE NEGATIVE (NEGATIVE)
[2023-06-01] MEDS: D5W IV SCH (19:17)
[2023-06-01] MEDS: NITROPRUSSIDE IV SCH (19:17)
[2023-06-01] MEDS ORDERED: ONDANSETRON INJECTION 4 MG/2 ML (SDV) IV PRN (21:00)
[2023-06-01] MEDS ORDERED: CALCIUM CARBONATE 500 MG CHEW TABLET PO PRN (21:00)
[2023-06-01] MEDS ORDERED: diphenhydrAMINE INJ 50 MG/ML VIAL IVP PRN (21:00)
[2023-06-01] MEDS ORDERED: HALOPERIDOL INJECTION 5 MG/ML VIAL IM PRN (21:00)
[2023-06-01] MEDS ORDERED: BISACODYL 10 MG SUPPOSITORY PR PRN (21:00)
[2023-06-01] MEDS ORDERED: NS IV 500 ML 500 ML IV PRN (21:00)
[2023-06-01] MEDS ORDERED: DexMEDEtomidine 1,000mcg/250ml 250 ML IV SCH (21:00)
[2023-06-01] MEDS ORDERED: LACTULOSE SYRUP 10GM/15ML 30ML UDC PO PRN (21:00)
[2023-06-01] MEDS ORDERED: HYDROmorphone INJECTION 2 MG/ML VIAL IV PRN (21:00)
[2023-06-01] MEDS ORDERED: MILK OF MAGNESIA 400 MG/5 ML 30 ML UDC PO PRN (21:00)
[2023-06-01] MEDS ORDERED: ONDANSETRON 4 MG ORAL DISSOLVE TABLET PO PRN (21:00)
[2023-06-01] MEDS ORDERED: diphenhydrAMINE 25 MG TABLET PO PRN (21:00)
[2023-06-01] MEDS ORDERED: MELATONIN 3 MG TABLET PO PRN (21:00)
[2023-06-01] MEDS ORDERED: ANTACID SUSPENSION 30 ML UDC PO PRN (21:00)
[2023-06-01 22:00] VITALS: BP 206/142
[2023-06-01] MEDS ORDERED: RT-ALBUTEROL SULF 2.5 MG/3 ML PRE-MIX VIAL INH PRN (22:15)
--- NOTE | 2023-06-01 22:16 | Tele-ICU Progress Note ---
Progress Note Tele ICU 38 yo man admitted with 3 day history of headache, 1 episode of emesis . Used dab pen (vaporized concentrated cannabis) today without relief. BP in ED 206/142- for which he was given hydralazine 10 mg IV, metoprolol 5 mg IV and metoprolol 50 mg PO . Was then started on nitroprusside . EKG- sinus, nl axis, LVH CXR: IMPRESSION: No acute radiographic abnormality in the chest. CT Head: IMPRESSION: No large acute territorial ischemia, mass, or hemorrhage. Labs: UDS + amphetamines, methamphetamines, cannabinoids Etoh <10 K 3.4 (replaced) Gluc 154 BUN 18 Cr 1.51 Per Video: resting comfortably HR 64 BP 134/91 sats 98% A/P: Hypertensive emergency- amphetamine, cannabis abuse, renal insufficiency Pt is currently resting, BP controlled on nitroprusside, will continue same management overnight as amphetamine effect wears off- all other orders have already been written. Focused Exam Height, Weight, BMI Height: 5'11.00" Weight: 160lbs. oz. 72.290578kp; 21.00 BMI Method:Stated BASILIO MERIDA DO Jun 01, 2023 22:16
[2023-06-01] MEDS: DOCUSATE SODIUM 100 MG CAPSULE PO SCH (22:59)
[2023-06-01] MEDS: SENNOSIDES 8.6 MG TABLET PO SCH (23:00)
[2023-06-01] MEDS: ENOXAPARIN 40 MG/0.4 ML SYRINGE SC SCH (23:05)
[2023-06-02] MEDS: NITROPRUSSIDE IV SCH ×4 (01:41→20:37)
[2023-06-02] MEDS: D5W IV SCH ×4 (01:41→20:37)
[2023-06-02 04:39] LABS: BASOPHILS # (AUTO) 0.1 10^3/uL (0.0-0.1); BASOPHILS % (AUTO) 1 % (0-10); EOSINOPHILS # (AUTO) 0.3 10^3/uL (0.0-0.3); EOSINOPHILS % (AUTO) 3 % (0-10); HEMATOCRIT 39 % (40-54); HEMOGLOBIN 13.2 g/dL (13.3-17.7); LYMPHOCYTES # (AUTO) 3.8 10^3/uL (1.0-4.0); LYMPHOCYTES % (AUTO) 34 % (12-44); MEAN CORPUSCULAR HEMOGLOBIN 29 pg (25-34); MEAN CORPUSCULAR HGB CONC 34 g/dL (32-36); MEAN CORPUSCULAR VOLUME 85 fL (80-99); MEAN PLATELET VOLUME 11.3 fL (9.0-12.2); MONOCYTES # (AUTO) 1.3 10^3/uL (0.0-1.0); MONOCYTES % (AUTO) 11 % (0-12); NEUTROPHILS # (AUTO) 5.8 10^3/uL (1.8-7.8); NEUTROPHILS % (AUTO) 51 % (42-75); PLATELET COUNT 241 10^3/uL (130-400); WHITE BLOOD COUNT 11.3 10^3/uL (4.3-11.0)
[2023-06-02 04:56] LABS: ALBUMIN 3.7 GM/DL (3.2-4.5); POTASSIUM 3.5 MMOL/L (3.6-5.0)
[2023-06-02 04:58] LABS: CALCIUM 9.3 MG/DL (8.5-10.1)
[2023-06-02 04:59] LABS: TOTAL PROTEIN 6.1 GM/DL (6.4-8.2)
[2023-06-02 05:01] LABS: BILIRUBIN,TOTAL 0.3 MG/DL (0.1-1.0)
[2023-06-02 05:02] LABS: PHOSPHORUS 5.4 MG/DL (2.3-4.7)
[2023-06-02 05:03] LABS: CREATININE SERUM 1.57 MG/DL (0.60-1.30)
[2023-06-02 05:06] LABS: MAGNESIUM 2.4 MG/DL (1.6-2.4)
[2023-06-02] MEDS: POTASSIUM CHLORIDE 20 MEQ TABLET PO SCH (06:16)
[2023-06-02] MEDS: MAGNESIUM 1 GM/100 ML IVPB 100 ML IV SCH (06:16)
[2023-06-02] MEDS: POTASSIUM CL 10MEQ/50ML IVPB 50 ML IV SCH (06:16)
[2023-06-02] MEDS ORDERED: POTASSIUM CHLORIDE 20 MEQ TABLET PO ONE (08:00)
[2023-06-02] MEDS: SENNOSIDES 8.6 MG TABLET PO SCH ×2 (08:46→20:40)
[2023-06-02] MEDS: DOCUSATE SODIUM 100 MG CAPSULE PO SCH ×2 (08:46→20:39)
--- NOTE | 2023-06-02 09:20 | History & Physical-Hospitalist ---
MICHELLE JORDAN MD, RESIDENT 06/02/23 0920: History of Present Illness HPI/Chief Complaint CC: Headache Patient presented to the ED with persistent headache. He states this started 5 days ago and has been constant, rated 10 out of 10. He states this is happened before a couple times. He was noted to have elevated blood pressures with systolics over 200 and diastolics over 100. He was thus admitted to the ICU for further management. Patient was started on a nitro drip to manage his blood pressures. Of note, patient's UDS was positive for methamphetamines and cannabis which is likely contributing to his hypertensive picture. He is also a smoker. He denies any medical conditions. However review of his chart was notable for a prior prescription of metoprolol for blood pressure which patient states he has not been taking and does not remember when this was prescribed. He does not have a PCP at this time. Source: patient Exam Limitations: no limitations Date Seen 06/02/23 Time Seen by a Provider: 07:30 Attending Physician [facility] PCP Admitting Physician: Tiffayn Lucero DO Attending Physician: Tiffany Lucero DO Referring Physician Date of Admission Jun 01, 2023 at 20:34 Home Medications & Allergies Home Medications Reviewed patient Home Medication Reconciliation performed by pharmacy medication reconciliations biological lab technician and/or nursing. Patients Allergies have been reviewed. Allergies Allergies Coded Allergies cefaclor (Unverified Allergy, Intermediate, HIVES, 01/15/19) Past Nwzqpxe-Jznoeg-Mvlaaa Hx Patient Social History Tobacco Use?: Yes Tobacco type used: Cigarettes Smoking Status: Current Everyday Smoker Substance use?: No Substance type: Marijuana Alcohol Use?: No Pt feels they are or have been: No Immunizations Up To Date First/Initial COVID19 Vaccinat: N/A Second COVID19 Vaccination Catrachito: N/A Hepatitis A: No Hepatitis B: No Current Status Advance Directives: No Communicates: Verbally Primary Language: Czech Preferred Spoken Language: Czech Is interpretation needed?: No Past Medical History Hypertension Sexually Transmitted Disease: No HIV/AIDS: No Blood Disorders: No Family Medical History Reviewed Nursing Family Hx No Pertinent Family Hx Review of Systems Constitutional: No chills, No dizziness, No fever EENTM: No no symptoms reported Respiratory: No cough, No dyspnea on exertion, No short of breath Cardiovascular: No chest pain, No edema, No palpitations Gastrointestinal: No abdominal pain, No constipation, No diarrhea; nausea; No vomiting Genitourinary: No dysuria Musculoskeletal: No no symptoms reported Skin: No no symptoms reported Psychiatric/Neurological: Headache Physical Exam Physical Exam Vital Signs Vital Signs - First Documented 06/01/23 06/01/23 06/01/23 17:20 20:50 22:00 Temp 36.5 Pulse 54 Resp 16 B/P (MAP) 206/142 (163) Pulse Ox 93 O2 Delivery Room Air FiO2 21 Capillary Refill : Less Than 3 Seconds Height, Weight, BMI Height: 5'11.00" Weight: 160lbs. oz. 72.848470ca; 21.73 BMI Method:Stated General Appearance: No Apparent Distress HEENT: PERRL/EOMI, Normal ENT Inspection Neck: Full Range of Motion, Non Tender Respiratory: Chest Non Tender, Lungs Clear, Normal Breath Sounds, No Accessory Muscle Use, No Respiratory Distress Cardiovascular: Regular Rate, Rhythm, No Edema, No Murmur Gastrointestinal: Normal Bowel Sounds, Non Tender, Soft Extremity: No Pedal Edema Neurologic/Psychiatric: Alert, Oriented x3, grocery cashier II-XII Norm as Tested Skin: Normal Color, Warm/Dry Results Results/Procedures Labs Laboratory Tests 06/01/23 17:36 06/02/23 04:01 Patient resulted labs reviewed. Imaging: Reviewed Imaging Films, Reviewed Imaging Report Imaging Chest x-ray (06/01/2023): IMPRESSION: No acute radiographic abnormality in the chest. CT head (06/01/2023): IMPRESSION: No large acute territorial ischemia, mass, or hemorrhage. Assessment/Plan Admission Diagnosis Hypertensive urgency Admission Status: Observation Diagnosis/Problems Diagnosis/Problems (1) Hypertensive urgency Status: Acute Assessment & Plan: Likely multifactorial due to untreated hypertension, m ethamphetamine and smoking use. CT head negative. Plan: Continue nitro drip for now - Add on amlodipine 10mg to transition to oral (2) Headache Status: Acute Assessment & Plan: Likely secondary to hypertensive urgency. Does appear to be improving today with improvement in blood pressure. Plan: Treat blood pressure as per above Tylenol as needed for headaches Qualifiers: Headache type: unspecified Headache chronicity pattern: acute headache Intractability: not intractable Qualified Codes: R51.9 - Headache, unspecifi ed (3) Renal insufficiency Status: Acute Assessment & Plan: May be secondary to elevated blood pressure or may be chronic. Creatinine 1.51 to 1.57 today. Plan: Continue to monitor with daily CMP (4) Methamphetamine use Status: Chronic Assessment & Plan: Likely contributing to hypertension. Encourage abstinence. (5) Cannabis use disorder Status: Chronic Assessment & Plan: Encourage decreased use. (6) Tobacco use Status: Chronic Assessment & Plan: Encouraged smoking cessation given that this may also be contributing to patient's elevated blood pressure. Plan: Can start nicotine patches if patient is having any cravings however he decli alicia this a.m. for now TIFFANY LUCERO DO 06/03/23 0537: History of Present Illness HPI/Chief Complaint Chief complaint: Hypertensive urgency HPI: This is a 38-year-old male meth user who has a history of hypertension who presented with hypertensive urgency. nitroprusside infusion maintained. Source: patient Exam Limitations: no limitations Past Kbjwodb-Rcgskj-Hmwjup Hx Patient Social History Marrital Status: single Employed/Student: unemployed Smoking Status: Current Everyday Smoker Review of Systems Constitutional: see HPI Physical Exam Physical Exam General Appearance: No Apparent Distress Eyes: Right Eye Normal Inspection, Right Eye PERRL HEENT: PERRL/EOMI, TMs Normal, Normal ENT Inspection, Pharynx Normal, Moist Mucous Membranes Neck: Full Range of Motion, Normal Inspection, Non Tender Respiratory: Chest Non Tender, Lungs Clear, Normal Breath Sounds, No Accessory Muscle Use, No Respiratory Distress Cardiovascular: Regular Rate, Rhythm, No Edema, No Gallop, No JVD, No Murmur, Normal Peripheral Pulses Gastrointestinal: Normal Bowel Sounds, No Organomegaly, No Pulsatile Mass, Non Tender, Soft Back: Normal Inspection, No CVA Tenderness, No Vertebral Tenderness Extremity: Normal Capillary Refill, Normal Inspection, Normal Range of Motion, Non Tender, No Calf Tenderness, No Pedal Edema Neurologic/Psychiatric: Alert, Oriented x3, No Motor/Sensory Deficits, Normal Mood/Affect Skin: Normal Color, Warm/Dry Lymphatic: No Adenopathy Assessment/Plan Admission Diagnosis Assessment: Hypertensive urgency Meth use Plan: Wean off infusion Stop using meth Admission Status: Observation MICHELLE JORDAN MD, RESIDENT Jun 02, 2023 09:20 TIFFANY LUCERO DO Jun 03, 2023 05:37
--- NOTE | 2023-06-02 10:50 | Tele-ICU Consult ---
History of Present Illness History of Present Illness Date Seen by Provider: Jun 02, 2023 Time Seen by Provider: 10:45 History of Present Illness (Tele-ICU Physician , Progress Note ) Service provided via interactive audio and video telecommunications E-CARE system to a patient admitted to ICU bed in [facility]. Patient is seen today due to persistent need of ICU care Available chart/ vitals / labs / Images reviewed Video assessment done using teleICU camera, rest of exam as per RN He is a elderly male with past medical history of hypertension presented to the emergency room with a complaint of headache for about 3 to 4 days and did not improve with xvus-ioq-jldnzuo analgesics. And this headache got worse on the day of admission hence he came to the emergency room where he is found to have uncontrolled hypertension. A CT of the brain was done which was negative. He is a started on nitroprusside and admitted to the intensive care unit for control and monitoring of his blood pressure. Denied any chest pain. Impression 1. Uncontrolled hypertension causing headache 2. Noncompliance with medications. 3. History of BPH. 4. Acute kidney injury secondary to uncontrolled hypertension 5. Cannabis and methamphetamine abuse Recommendations 1. Continue to titrate nitroprusside and wean as tolerated 2. Start on amlodipine 10 mg now and daily 3. Cardiology consult has been requested and awaiting input. 4. DVT prophylaxis. 5. IV hydration cautiously and monitor BUN and creatinine. 6. Substance abuse counselling per attending Coordination of care with bedside consultants and primary care physician. I am remotely monitoring this patient from Tele icu station in [place]. I am unable to do the bedside exam, and history/physical and pertinent information is taken from other notes in the computer and bedside staff. Certain portions of this document may have been dictated utilizing voice recognition technology such as [employer]ottly[employer]. Inherent to this technology, typographical and grammatical errors may exist. As much as I am diligent to identify and correct to these mistakes, some errors may remain in the document. Critical care time devoted to this patient today is approximately is--20 minutes. Allergies and Home Medications Allergies Coded Allergies: cefaclor (Unverified Allergy, Intermediate, HIVES, 01/15/19) Past Medical/Social/Family Hx Patient Social History Tobacco Use?: Yes Tobacco type used: Cigarettes Smoking Status: Current Everyday Smoker Substance use?: No Substance type: Marijuana Alcohol Use?: No Pt stated abuse/neglect: No Immunizations Up To Date Influenza Vaccine Up-to-Date: No; Not Current First/Initial COVID19 Vaccinat: N/A Second COVID19 Vaccination Catrachito: N/A Hepatitis A: No Hepatitis B: No TB Skin Test: None Current Status Advance Directives: No Communicates: Verbally Primary Language: Bulgarian Preferred Spoken Language: Bulgarian Is interpretation needed?: No Review of Systems Constitutional: see HPI, other (headache) Focused Exam Height, Weight, BMI Height: 5'11.00" Weight: 160lbs. oz. 72.823915pj; 21.73 BMI Method:Stated Exam Exam Patient acknowledged, consented, and participated in this virtual visit which was conducted using real time audio/video Vital Signs Date Time Temp Pulse Resp B/P (MAP) Pulse Ox O2 Delivery O2 Flow Rate FiO2 06/02/23 10:00 80 28 156/98 (117) 99 Room Air 06/02/23 09:00 67 16 171/108 (128) 100 Room Air 06/02/23 08:00 56 12 161/105 (119) 98 Room Air 06/02/23 07:53 36.7 06/02/23 07:00 60 14 153/107 (122) 100 Room Air 06/02/23 07:00 62 06/02/23 06:22 67 18 180/125 06/02/23 06:00 57 21 165/117 (133) 100 Room Air 06/02/23 05:00 64 14 144/97 (113) 98 Room Air 06/02/23 04:00 97 Room Air 06/02/23 04:00 62 15 146/102 (117) 99 Room Air 06/02/23 03:00 58 14 144/93 (110) 98 Room Air 06/02/23 02:00 64 12 135/91 (106) 98 Room Air 06/02/23 01:00 77 19 141/98 (112) 100 Room Air 06/02/23 01:00 77 06/02/23 00:00 62 14 130/80 (97) 99 Room Air 06/01/23 23:59 99 Room Air 06/01/23 23:58 67 18 117/59 06/01/23 23:00 76 12 117/68 (84) 100 Room Air 06/01/23 22:30 70 17 134/87 (103) 98 Room Air 06/01/23 22:00 36.5 54 93 21 06/01/23 22:00 67 15 134/91 (105) 98 Room Air 06/01/23 21:45 69 16 135/81 (99) 98 Room Air 06/01/23 21:30 68 15 140/84 (102) 98 Room Air 06/01/23 21:15 69 17 135/85 (102) 98 Room Air 06/01/23 21:00 99 Room Air 06/01/23 21:00 80 13 99 Room Air 06/01/23 20:50 37.0 71 18 152/76 (101) 99 Room Air 06/01/23 20:44 70 06/01/23 20:15 69 16 149/99 98 06/01/23 19:17 64 18 183/121 06/01/23 17:20 36.5 54 16 206/142 (163) 93 I & O 06/02/23 07:00 Intake Total 375 ml Balance 375 ml Height & Weight Height: 5'11.00" Weight: 160lbs. oz. 72.235386jz; 21.73 BMI Method:Stated General Appearance: No Apparent Distress, Anxious, Thin HEENT: PERRL/EOMI, Normal ENT Inspection Neck: Full Range of Motion, Non Tender Respiratory: Chest Non Tender, Lungs Clear, Normal Breath Sounds, No Accessory Muscle Use, No Respiratory Distress Cardiovascular: Regular Rate, Rhythm, No Edema, No Murmur Capillary Refill: Less Than 3 Seconds Gastrointestinal: non tender, soft Extremity: No Pedal Edema Neurologic/Psychiatric: Alert, Oriented x3, timber deadener II-XII Norm as Tested Skin: Normal Color, Warm/Dry Results Lab Laboratory Tests 06/01/23 17:36 06/02/23 04:01 Assessment/Plan Assessment/Plan as above Critical Care: Critically Ill Patient Time spent with patient (mins): 20 VALERY LANG MD Jun 02, 2023 10:50
[2023-06-02] MEDS: amLODIPine 5 MG TABLET PO SCH (10:55)
[2023-06-02] MEDS ORDERED: LOSARTAN 50 MG TABLET PO NR (15:00)
[2023-06-02] MEDS: ACETAMINOPHEN 325 MG TABLET PO PRN (15:40)
[2023-06-02] MEDS: LOSARTAN 50 MG TABLET PO SCH (20:24)
[2023-06-02] MEDS: ENOXAPARIN 40 MG/0.4 ML SYRINGE SC SCH (20:24)
[2023-06-03] MEDS ORDERED: D5W (IVPB) 250 ML (EXCEL) 250 ML IV ONE (00:03)
[2023-06-03] MEDS: ACETAMINOPHEN 325 MG TABLET PO PRN ×2 (01:06→19:48)
[2023-06-03] MEDS: NITROPRUSSIDE IV SCH (03:41)
[2023-06-03] MEDS: D5W IV SCH (03:41)
[2023-06-03 04:16] LABS: BASOPHILS # (AUTO) 0.1 10^3/uL (0.0-0.1); BASOPHILS % (AUTO) 1 % (0-10); EOSINOPHILS # (AUTO) 0.2 10^3/uL (0.0-0.3); EOSINOPHILS % (AUTO) 1 % (0-10); HEMATOCRIT 38 % (40-54); HEMOGLOBIN 12.8 g/dL (13.3-17.7); LYMPHOCYTES # (AUTO) 2.8 10^3/uL (1.0-4.0); LYMPHOCYTES % (AUTO) 17 % (12-44); MEAN CORPUSCULAR HEMOGLOBIN 29 pg (25-34); MEAN CORPUSCULAR HGB CONC 34 g/dL (32-36); MEAN CORPUSCULAR VOLUME 86 fL (80-99); MEAN PLATELET VOLUME 11.5 fL (9.0-12.2); MONOCYTES # (AUTO) 1.9 10^3/uL (0.0-1.0); MONOCYTES % (AUTO) 11 % (0-12); NEUTROPHILS # (AUTO) 11.7 10^3/uL (1.8-7.8); NEUTROPHILS % (AUTO) 70 % (42-75); PLATELET COUNT 236 10^3/uL (130-400); WHITE BLOOD COUNT 16.7 10^3/uL (4.3-11.0)
[2023-06-03 04:30] LABS: ALBUMIN 3.4 GM/DL (3.2-4.5); POTASSIUM 3.8 MMOL/L (3.6-5.0)
[2023-06-03 04:31] LABS: CALCIUM 8.9 MG/DL (8.5-10.1)
[2023-06-03 04:33] LABS: TOTAL PROTEIN 5.4 GM/DL (6.4-8.2)
[2023-06-03 04:34] LABS: BILIRUBIN,TOTAL 0.4 MG/DL (0.1-1.0)
[2023-06-03 04:36] LABS: CREATININE SERUM 1.45 MG/DL (0.60-1.30); PHOSPHORUS 3.1 MG/DL (2.3-4.7)
[2023-06-03 04:38] LABS: EOSINOPHILS % (MANUAL) 1 %; LYMPHOCYTES % (MANUAL) 26 %; MONOCYTES % (MANUAL) 6 %; NEUTROPHILS % (MANUAL) 67 %; RBC MORPH NORMAL
[2023-06-03] MEDS: MAGNESIUM 1 GM/100 ML IVPB 100 ML IV SCH (04:41)
[2023-06-03] MEDS: POTASSIUM CL 10MEQ/50ML IVPB 50 ML IV SCH (04:44)
[2023-06-03] MEDS: POTASSIUM CHLORIDE 20 MEQ TABLET PO SCH (04:44)
--- NOTE | 2023-06-03 06:08 | Progress Note - Hospitalist ---
Subjective HPI/CC On Admission Date Seen by Provider: Jun 03, 2023 Time Seen by Provider: 11:00 Chief complaint: Hypertensive urgency HPI: This is a 38-year-old male meth user who has a history of hypertension who presented with hypertensive urgency. nitroprusside infusion maintained. Subjective/Events-last exam Hypertension continues Still on infusion Meth withdrawal likely contributing Review of Systems General: Fatigue Objective Exam Vital Signs Vital Signs Date Time Temp Pulse Resp B/P (MAP) Pulse Ox O2 Delivery O2 Flow Rate FiO2 06/03/23 15:23 97 Room Air 06/03/23 15:00 104 24 151/86 (111) 06/03/23 08:00 36.9 06/01/23 22:00 21 Capillary Refill : Less Than 3 Seconds General Appearance: No Apparent Distress, WD/WN, Chronically ill Respiratory: Lungs Clear, Normal Breath Sounds Cardiovascular: Regular Rate, Rhythm Neurologic/Psychiatric: Alert, Oriented x3 Results/Procedures Lab Laboratory Tests 06/03/23 03:48 Patient resulted labs reviewed. Imaging: Reviewed Imaging Films, Reviewed Imaging Report Assessment/Plan Assessment and Plan Assess & Plan/Chief Complaint Assessment: Hypertensive urgency Meth use Plan: Supportive care Blood pressure management ICU Nitroprusside Infusion Critical Care Critically Ill Patient HESHAMLIZBETJuliana MILLER Jun 03, 2023 06:08
[2023-06-03] MEDS ORDERED: POTASSIUM CHLORIDE 20 MEQ TABLET PO ONE (08:00)
[2023-06-03] MEDS: LORazepam 0.5 MG TABLET PO PRN ×2 (08:08→19:48)
[2023-06-03] MEDS: LOSARTAN 50 MG TABLET PO SCH ×2 (08:09→19:49)
[2023-06-03] MEDS: DOCUSATE SODIUM 100 MG CAPSULE PO SCH ×2 (08:09→20:44)
[2023-06-03] MEDS: amLODIPine 5 MG TABLET PO SCH (08:09)
[2023-06-03] MEDS: SENNOSIDES 8.6 MG TABLET PO SCH ×2 (08:09→20:44)
--- NOTE | 2023-06-03 08:43 | Tele-ICU Progress Note ---
Subjective Date Seen by a Provider: Jun 03, 2023 Subjective/Events-last exam This virtual visit was conducted using real time audio/video. Thank you for asking us to see this patient for critical care services due to hypert. urgency and + UDS for elizabeth/amphet PE: VSS. 156/95 O2 sat 100% on RA HEENT: No obvious masses, adenopathy or JVD. Chest: clear to auscultation. CV: RRR S1 S2 No murmur or added sounds. Abd: Non-tender. Bowel sounds Y. : Unremarkable. Aggarwal N. WILDLIFE AND GAME PROTECTOR/psychiatric: Grossly intact. No obvious focal findings. Extremities: No edema. Capillary refill < 3 seconds. Skin: unremarkable. Results: Elevated WCC 16.7, BUN 25, Creat 1.45. Decreased Hb 12.8. CXR: Clear. Available chart/ vitals / labs / images reviewed. Video assessment done using teleICU camera, rest of exam as per RN. A/P: Critical Care: critically ill patient. Cont. PO meds, wean Nipride as jeffrey. Discussed with RN Elisa. Asked RN to reach out to eICU if any questions or concerns later. Time spent with patient/coordination of care with other health professionals (mins): 15 Sepsis Event Evaluation Height, Weight, BMI Height: 5'11.00" Weight: 160lbs. oz. 72.344026ij; 22.09 BMI Method:Stated Exam Exam Patient acknowledged, consented, and participated in this virtual visit which was conducted using real time audio/video Vital Signs Date Time Temp Pulse Resp B/P (MAP) Pulse Ox O2 Delivery O2 Flow Rate FiO2 06/03/23 08:00 74 27 165/102 (128) Room Air 06/03/23 08:00 36.9 06/03/23 07:00 83 19 161/102 (122) Room Air 06/03/23 07:00 83 06/03/23 06:00 75 20 133/96 (108) 100 Room Air 06/03/23 05:00 75 14 131/79 (96) 100 Room Air 06/03/23 04:00 101 15 152/91 (111) 100 Room Air 06/03/23 03:51 Room Air 06/03/23 03:41 87 24 138/88 06/03/23 03:00 79 20 160/92 (114) 100 Room Air 06/03/23 02:50 88 22 164/107 06/03/23 02:00 82 13 156/93 (114) 100 Room Air 06/03/23 01:00 86 17 137/90 (106) 100 Room Air 06/03/23 00:41 90 17 176/116 06/03/23 00:03 86 06/03/23 00:00 98 15 147/94 (111) 100 Room Air 06/02/23 23:05 Room Air 06/02/23 23:00 85 17 153/100 (117) 97 Room Air 06/02/23 22:00 93 16 150/101 (117) 96 Room Air 06/02/23 21:55 96 Room Air 06/02/23 21:00 88 28 142/98 (113) 96 Room Air 06/02/23 20:37 93 22 158/99 06/02/23 20:00 37.6 88 17 151/99 (116) Room Air 06/02/23 19:56 Room Air 06/02/23 19:00 91 19 157/90 (112) Room Air 06/02/23 19:00 92 149/91 (110) Room Air 06/02/23 18:55 84 06/02/23 18:00 93 22 160/113 (126) Room Air 06/02/23 17:00 85 20 144/99 (116) Room Air 06/02/23 16:19 37.3 06/02/23 16:00 97 Room Air 06/02/23 16:00 80 15 151/98 (115) 100 Room Air 06/02/23 15:00 79 17 163/107 (130) 99 Room Air 06/02/23 14:00 86 23 163/105 (121) 100 Room Air 06/02/23 13:00 99 26 181/116 (128) 99 Room Air 06/02/23 12:41 74 06/02/23 12:00 97 Room Air 06/02/23 12:00 82 16 142/94 (108) 100 Room Air 06/02/23 11:00 75 18 146/101 (115) 98 Room Air 06/02/23 10:55 72 153/105 06/02/23 10:00 80 28 156/98 (117) 99 Room Air 06/02/23 09:00 67 16 171/108 (128) 100 Room Air I & O 06/03/23 07:00 Intake Total 6862 ml Output Total 4975 ml Balance 1887 ml Height & Weight Height: 5'11.00" Weight: 160lbs. oz. 72.362064al; 22.09 BMI Method:Stated General Appearance: No Apparent Distress HEENT: PERRL/EOMI, TMs Normal, Normal ENT Inspection, Pharynx Normal, Moist Mucous Membranes Neck: Full Range of Motion, Normal Inspection, Non Tender Respiratory: Chest Non Tender, Lungs Clear, Normal Breath Sounds, No Accessory Muscle Use, No Respiratory Distress Cardiovascular: Regular Rate, Rhythm, No Edema, No Gallop, No JVD, No Murmur, Normal Peripheral Pulses Capillary Refill: Less Than 3 Seconds Gastrointestinal: non tender, soft Extremity: Normal Capillary Refill, Normal Inspection, Normal Range of Motion, Non Tender, No Calf Tenderness, No Pedal Edema Neurologic/Psychiatric: Alert, Oriented x3, No Motor/Sensory Deficits, Normal Mood/Affect Skin: Normal Color, Warm/Dry Lymphatic: No Adenopathy Results Lab Laboratory Tests 06/01/23 17:36 06/02/23 04:01 06/03/23 03:48 Assessment/Plan Assessment/Plan See free text. Critical Care: Critically Ill Patient CATRACHITO VILLALOBOS MD Jun 03, 2023 08:43
[2023-06-03] MEDS: oxyCODONE IMMEDIATE RELEASE 5 MG TABLET PO PRN ×2 (11:11→19:49)
[2023-06-03] MEDS: niCARdipine INJECTION 50 MG in NS (IVPB) 250 ML 230 ML IV SCH ×2 (11:12→17:17)
[2023-06-03] MEDS ORDERED: LABETALOL 5 mg/ml 4 ML SINGLE DOSE SYRINGE IV PRN (14:00)
[2023-06-03] MEDS: ENOXAPARIN 40 MG/0.4 ML SYRINGE SC SCH (19:49)
[2023-06-04 04:11] LABS: BASOPHILS # (AUTO) 0.1 10^3/uL (0.0-0.1); BASOPHILS % (AUTO) 1 % (0-10); EOSINOPHILS # (AUTO) 0.4 10^3/uL (0.0-0.3); EOSINOPHILS % (AUTO) 3 % (0-10); HEMATOCRIT 39 % (40-54); HEMOGLOBIN 12.9 g/dL (13.3-17.7); LYMPHOCYTES # (AUTO) 3.6 10^3/uL (1.0-4.0); LYMPHOCYTES % (AUTO) 31 % (12-44); MEAN CORPUSCULAR HEMOGLOBIN 29 pg (25-34); MEAN CORPUSCULAR HGB CONC 33 g/dL (32-36); MEAN CORPUSCULAR VOLUME 87 fL (80-99); MEAN PLATELET VOLUME 11.2 fL (9.0-12.2); MONOCYTES # (AUTO) 1.3 10^3/uL (0.0-1.0); MONOCYTES % (AUTO) 11 % (0-12); NEUTROPHILS % (AUTO) 53 % (42-75); PLATELET COUNT 237 10^3/uL (130-400); WHITE BLOOD COUNT 11.4 10^3/uL (4.3-11.0)
[2023-06-04 04:23] LABS: ALBUMIN 3.6 GM/DL (3.2-4.5); POTASSIUM 3.5 MMOL/L (3.6-5.0)
[2023-06-04 04:24] LABS: CALCIUM 9.5 MG/DL (8.5-10.1)
[2023-06-04 04:26] LABS: TOTAL PROTEIN 6.2 GM/DL (6.4-8.2)
[2023-06-04 04:27] LABS: BILIRUBIN,TOTAL 0.2 MG/DL (0.1-1.0)
[2023-06-04 04:29] LABS: CREATININE SERUM 1.41 MG/DL (0.60-1.30)
[2023-06-04 04:32] LABS: MAGNESIUM 1.9 MG/DL (1.6-2.4)
[2023-06-04] MEDS: POTASSIUM CL 10MEQ/50ML IVPB 50 ML IV SCH (04:35)
[2023-06-04] MEDS: POTASSIUM CHLORIDE 20 MEQ TABLET PO SCH (04:35)
[2023-06-04] MEDS: MAGNESIUM 1 GM/100 ML IVPB 100 ML IV SCH (04:35)
[2023-06-04] MEDS: LOSARTAN 50 MG TABLET PO SCH (08:03)
[2023-06-04] MEDS: amLODIPine 5 MG TABLET PO SCH (08:03)
--- NOTE | 2023-06-04 08:56 | Progress Note ---
Objective Exam Last Set of Vital Signs Vital Signs Date Time Temp Pulse Resp B/P (MAP) Pulse Ox O2 Delivery O2 Flow Rate FiO2 06/04/23 08:00 92 15 147/94 (111) Room Air 06/04/23 08:00 36.4 06/04/23 08:00 97 06/01/23 22:00 21 Capillary Refill : Less Than 3 Seconds I&O l Intake and Output 06/04/23 00:00 Intake Total 4578 ml Output Total 5600 ml Balance -1022 ml Intake Oral 4076 ml IV Total 502 ml Output Urine Total 5600 ml Results/Procedures Lab Laboratory Tests 06/04/23 03:45: White Blood Count 11.4H, Red Blood Count 4.46, Hemoglobin 12.9L, Hematocrit 39L, Mean Corpuscular Volume 87, Mean Corpuscular Hemoglobin 29, Mean Corpuscular Hemoglobin Concent 33, Red Cell Distribution Width 12.6, Platelet Count 237, Mean Platelet Volume 11.2, Immature Granulocyte % (Auto) 1, Neutrophils (%) (Auto) 53, Lymphocytes (%) (Auto) 31, Monocytes (%) (Auto) 11, Eosinophils (%) (Auto) 3, Basophils (%) (Auto) 1, Neutrophils # (Auto) 6.0, Lymphocytes # (Auto) 3.6, Monocytes # (Auto) 1.3H, Eosinophils # (Auto) 0.4H, Basophils # (Auto) 0.1, Immature Granulocyte # (Auto) 0.1, Sodium Level 140, Potassium Level 3.5L, Chloride Level 105, Carbon Dioxide Level 23, Anion Gap 12, Blood Urea Nitrogen 23H, Creatinine 1.41H, Estimat Glomerular Filtration Rate 66, BUN/Creatinine Ratio 16, Glucose Level 94, Calcium Level 9.5, Corrected Calcium 9.8, Phosphorus Level 4.0, Magnesium Level 1.9, Total Bilirubin 0.2, Aspartate Amino Transf (AST/SGOT) 15, Alanine Aminotransferase (ALT/SGPT) 8, Alkaline Phosphatase 92, Total Protein 6.2L, Albumin 3.6 Microbiology 06/01/23 MRSA Screen - Final, Complete MRSA not isolated MICHELLE JORDAN MD, RESIDENT Jun 04, 2023 08:56
--- NOTE | 2023-06-04 08:58 | Tele-ICU Progress Note ---
Subjective Date Seen by a Provider: Jun 04, 2023 Time Seen by a Provider: 08:57 Subjective/Events-last exam (Tele-ICU Physician , Progress Note ) Service provided via interactive audio and video telecommunications E-CARE system to a patient admitted to ICU bed in [facility]. Patient is seen today due to persistent need of ICU care Available chart/ vitals / labs / Images reviewed Video assessment done using teleICU camera, rest of exam as per RN He is a elderly male with past medical history of hypertension presented to the emergency room with a complaint of headache for about 3 to 4 days and did not improve with [id number] analgesics. And this headache got worse on the day of admission hence he came to the emergency room where he is found to have uncontrolled hypertension. A CT of the brain was done which was negative. He is a started on nitroprusside and admitted to the intensive care unit for control and monitoring of his blood pressure. Denied any chest pain. 06/04/23. BP improving. no cp. cardene is being discontinued. if stable may transfer to med-surg unit. Impression 1. Uncontrolled hypertension causing headache imroving 2. Noncompliance with medications. 3. History of BPH. 4. Acute kidney injury secondary to uncontrolled hypertension with some improvement 5. Cannabis and methamphetamine abuse Recommendations 1. Discontinue cardene and watch bp . if stable off cardene may transfer to med- surg floor. 2. Start on amlodipine 10 mg now and daily 3. Cardiology in put appreciated 4. DVT prophylaxis. 5. IV hydration cautiously and monitor BUN and creatinine. 6. Substance abuse counselling per attending Coordination of care with bedside consultants and primary care physician. I am remotely monitoring this patient from Tele icu station in [place]. I am unable to do the bedside exam, and history/physical and pertinent information is taken from other notes in the computer and bedside staff. Certain portions of this document may have been dictated utilizing voice recognition technology such as Copybar. Inherent to this technology, typographical and grammatical errors may exist. As much as I am diligent to identify and correct to these mistakes, some errors may remain in the document. Critical care time devoted to this patient today is approximately is-15 minutes. Sepsis Event Evaluation Height, Weight, BMI Height: 5'11.00" Weight: 160lbs. oz. 72.608395kh; 22.09 BMI Method:Stated Exam Exam Patient acknowledged, consented, and participated in this virtual visit which was conducted using real time audio/video Vital Signs Date Time Temp Pulse Resp B/P (MAP) Pulse Ox O2 Delivery O2 Flow Rate FiO2 06/04/23 08:00 92 15 147/94 (111) Room Air 06/04/23 08:00 36.4 06/04/23 08:00 97 Room Air 06/04/23 07:23 90 06/04/23 07:00 82 14 143/94 (110) Room Air 06/04/23 06:00 79 14 141/87 (108) Room Air 06/04/23 05:00 85 14 148/83 (104) Room Air 06/04/23 04:00 86 13 150/89 (111) Room Air 06/04/23 04:00 97 Room Air 06/04/23 03:00 87 15 150/89 (110) Room Air 06/04/23 02:00 80 12 146/89 (110) Room Air 06/04/23 01:00 81 06/04/23 01:00 81 15 140/78 (94) Room Air 06/04/23 00:00 36.8 06/04/23 00:00 87 15 132/78 (97) Room Air 06/03/23 23:59 97 Room Air 06/03/23 23:00 92 20 144/91 (112) Room Air 06/03/23 22:00 79 14 142/88 (106) Room Air 06/03/23 21:00 81 15 145/87 (105) Room Air 06/03/23 20:15 91 23 146/78 (95) Room Air 06/03/23 20:00 97 Room Air 06/03/23 20:00 92 25 120/92 (97) Room Air 06/03/23 20:00 37.2 06/03/23 19:53 97 22 106/89 (99) Room Air 06/03/23 19:48 37.2 06/03/23 19:45 96 20 94/76 (82) Room Air 06/03/23 19:30 89 22 143/80 (97) Room Air 06/03/23 19:15 91 17 144/86 (102) Room Air 06/03/23 19:00 88 19 154/88 (107) Room Air 06/03/23 19:00 88 11/5/23 18:02 144/75 06/03/23 18:00 89 24 144/75 (93) Room Air 06/03/23 17:17 137/81 06/03/23 17:00 86 21 137/88 (97) Room Air 06/03/23 16:00 82 19 126/71 (92) Room Air 06/03/23 15:23 97 Room Air 06/03/23 15:00 104 24 151/86 (111) Room Air 06/03/23 14:00 99 22 162/79 (121) Room Air 06/03/23 13:00 90 18 144/84 (101) Room Air 06/03/23 12:39 93 06/03/23 12:00 95 Room Air 06/03/23 12:00 94 17 155/85 (99) Room Air 06/03/23 11:12 178/123 06/03/23 11:00 96 19 161/92 (115) Room Air 06/03/23 10:00 78 18 155/99 (124) Room Air 06/03/23 09:00 86 25 169/100 (121) Room Air I & O 06/04/23 07:00 Intake Total 3426 ml Output Total 5300 ml Balance -1874 ml Height & Weight Height: 5'11.00" Weight: 160lbs. oz. 72.837496ns; 22.09 BMI Method:Stated General Appearance: No Apparent Distress, WD/WN, Chronically ill HEENT: PERRL/EOMI, TMs Normal, Normal ENT Inspection, Pharynx Normal, Moist Mucous Membranes Neck: Full Range of Motion, Normal Inspection, Non Tender Respiratory: Lungs Clear, Normal Breath Sounds Cardiovascular: Regular Rate, Rhythm Capillary Refill: Less Than 3 Seconds Gastrointestinal: non tender, soft Extremity: Normal Capillary Refill, Normal Inspection, Normal Range of Motion, Non Tender, No Calf Tenderness, No Pedal Edema Neurologic/Psychiatric: Alert, Oriented x3 Skin: Normal Color, Warm/Dry Lymphatic: No Adenopathy Results Lab Laboratory Tests 06/03/23 03:48 06/04/23 03:45 Assessment/Plan Assessment/Plan as above Critical Care: Critically Ill Patient Time spent with patient (mins): VALERY GARCIA MD Jun 04, 2023 08:58
[2023-06-04] MEDS ORDERED: meTOprolol TARTRATE (IR) 50 MG TABLET PO SCH (09:00)
[2023-06-04] MEDS ORDERED: POTASSIUM CHLORIDE 20 MEQ TABLET PO ONE (09:00)
[2023-06-04] MEDS: DOCUSATE SODIUM 100 MG CAPSULE PO SCH (09:11)
[2023-06-04] MEDS: SENNOSIDES 8.6 MG TABLET PO SCH (09:12)
[2023-06-04 10:29] VITALS: BP 138/92
[2023-06-04] MEDS ORDERED: LOSA50TA63 PO (10:35)
[2023-06-04] MEDS ORDERED: METO50TA15 PO (10:35)
[2023-06-04] MEDS ORDERED: AMLO-251 PO (10:35)
--- NOTE | 2023-06-04 10:45 | Discharge Summary ---
MICHELLE JORDAN MD, RESIDENT 06/04/23 1043: Discharge Summary Hospital Course Problems Reviewed?: Yes Problems/Diagnosis: (1) Hypertensive urgency Status: Acute Assessment & Plan: Likely multifactorial due to untreated hypertension, methamphetamine and smoking use. CT head negative. Plan: Patient successfully weaned off of blood pressure drips this morning Continue amlodipine 10 mg daily, losartan 50 mg twice daily, metoprolol 50 mg twice daily (2) Renal insufficiency Status: Acute Assessment & Plan: May be secondary to elevated blood pressure or may be chronic. Continues to be improving, creatinine of 1.41 this AM. Plan: Continue to monitor with CMP in the outpatient (3) Headache Status: Acute Assessment & Plan: Likely secondary to hypertensive urgency. Continues to be improving with improvement in blood pressures. No headache noted this AM. Plan: Treat blood pressure as per above Tylenol as needed for headaches Qualifiers: (4) Cannabis use disorder Status: Chronic Assessment & Plan: Encourage decreased use. (5) Methamphetamine use Status: Chronic Assessment & Plan: Likely contributing to hypertension. Encourage abstinence. Discussed with patient this morning, not ready to quit at this time. (6) Tobacco use Status: Chronic Assessment & Plan: Encouraged smoking cessation given that this may also be contributing to patient's elevated blood pressure. Patient is not ready to quit at this time. Plan: Can start nicotine patches if patient is having any cravings however he declined this a.m. for now Hospital Course Date of Admission: Jun 03, 2023 at 14:05 Admission Diagnosis : [facility] [place] Date of Discharge: 06/04/23 Discharge Diagnosis: Hypertensive urgency Hospital Course: Patient is a 38-year-old male with a past medical history of meth use, cannabis use, hypertension who presented with persistent headache. He states that this headache has been persistent for 5 days and had ultimately presented to the ED for evaluation as it was not intractable. He was noted to have elevated blood pressures with systolics over 200 and diastolics over 100 and thus was admitted to the ICU due to nitro drip requirements. In the ICU his blood pressure was managed with a nitro drip, and he was slowly started on some oral medications to help better manage his blood pressure and wean him off of the drip. He was switched to nicardipine drip for better blood pressure management. He was ultimately started on amlodipine 10 mg daily, losartan 50 mg twice daily and metoprolol 50 mg twice daily thus successfully getting him off of the ni cardipine drip. His poorly controlled blood pressure was thought to be secondary to meth use as well as significant caffeine intake while hospitalized. On 06/04/2023, patient left AMA for unknown reasons. Prescriptions for the oral medications he was started on here in the hospital has been sent over to [facility] and will have her nursing staff try to reach out to him to have them miner pick these medications and establish with a PCP. Labs and Pending Lab Test: Laboratory Tests 06/04/23 03:45: White Blood Count 11.4H, Red Blood Count 4.46, Hemoglobin 12.9L, Hematocrit 39L, Mean Corpuscular Volume 87, Mean Corpuscular Hemoglobin 29, Mean Corpuscular Hemoglobin Concent 33, Red Cell Distribution Width 12.6, Platelet Count 237, Mean Platelet Volume 11.2, Immature Granulocyte % (Auto) 1, Neutrophils (%) (Auto) 53, Lymphocytes (%) (Auto) 31, Monocytes (%) (Auto) 11, Eosinophils (%) (Auto) 3, Basophils (%) (Auto) 1, Neutrophils # (Auto) 6.0, Lymphocytes # (Auto) 3.6, Monocytes # (Auto) 1.3H, Eosinophils # (Auto) 0.4H, Basophils # (Auto) 0.1, Immature Granulocyte # (Auto) 0.1, Sodium Level 140, Potassium Level 3.5L, Ch loride Level 105, Carbon Dioxide Level 23, Anion Gap 12, Blood Urea Nitrogen 23H , Creatinine 1.41H, Estimat Glomerular Filtration Rate 66, BUN/Creatinine Ratio 16, Glucose Level 94, Calcium Level 9.5, Corrected Calcium 9.8, Phosphorus Level 4.0, Magnesium Level 1.9, Total Bilirubin 0.2, Aspartate Amino Transf (AST/SGOT) 15, Alanine Aminotransferase (ALT/SGPT) 8, Alkaline Phosphatase 92, Total Protein 6.2L, Albumin 3.6 Microbiology 06/01/23 MRSA Screen - Final, Complete MRSA not isolated Home Meds Active No Active Prescriptions or Reported Medications Assessment/Pt DC Instructions Please see electronic discharge instructions given to patient. Discharge Diet: No Restrictions Activity as Tolerated: Yes Discharge Physical Examination Allergies: Coded Allergies: cefaclor (Unverified Allergy, Intermediate, HIVES, 01/15/19) General Appearance: No Apparent Distress HEENT: Normal ENT Inspection Respiratory: Chest Non Tender, Lungs Clear, Normal Breath Sounds, No Accessory Muscle Use, No Respiratory Distress Cardiovascular: Regular Rate, Rhythm, No Edema, No Murmur Gastrointestinal: Normal Bowel Sounds, Non Tender, Soft Extremity: Non Tender, No Pedal Edema Skin: Normal Color, Warm/Dry Neurologic/Psychiatric: Alert, Oriented x3 JULIET NICK MD 06/04/23 1240: Discharge Summary Discharge Physical Examination Allergies: Coded Allergies: cefaclor (Unverified Allergy, Intermediate, HIVES, 01/15/19) Supervisory-Addendum Brief Supervisory Addendum I personally performed the lai portions of the visit, discussed case with tiff fairbanks and concur with resident documentation of history, physical exam, assessment and treatment plan unless otherwise noted. MICHELLE JORDAN MD, RESIDENT Jun 04, 2023 10:43 JULIET NICK MD Jun 04, 2023 12:40
== END 2023-06-04 10:30 | disposition left against medical advice (07) | DRG 305 ==
LOC: EDUNIT# 17:13 → ER 17:15 → INTOOBSV 20:34 → ICU 20:34 → OBSVTOIN 06-03 14:05
PROVIDERS: ADMIT Internal Medicine; ATTEND Family Medicine
DX: I16.0 Hypertensive urgency (principal); N17.9 Acute kidney failure, unspecified; F15.13 Other stimulant abuse with withdrawal; I10 Essential (primary) hypertension; N28.9 Disorder of kidney and ureter, unspecified; R51.9 Headache, unspecified; F12.10 Cannabis abuse, uncomplicated; F17.210 Nicotine dependence, cigarettes, uncomplicated; Z91.148 Patient's other noncompliance with medication regimen for other reason; Z88.1 Allergy status to other antibiotic agents
CPT/HCPCS: 36415; 70450; 71045; 80053; 80306; 80320; 81000; 83735; 84100; 84443; 84484; 85007; 85025; 85027; 87081; 93005; 93041